=== PATIENT | male | born 1945 | race Caucasian/White ===

== ENCOUNTER 2016-10-29 10:48 | Emergency (ER) | payer MEDICARE, OTHER ==
[2016-10-29] MEDS ORDERED: Sodium Chloride 0.9% 10 ML Syringe FLUSH PRN (11:11)
--- NOTE | 2016-10-29 11:15 | EDM.PDOC ---
ED HPI GENERAL MEDICAL PROBLEM - General Chief Complaint: Lower Extremity Injury/Pain Stated Complaint: FELL ON , HASN'T BEEN ABLE TO WALK Time Seen by Provider: 10/29/16 11:05 Source of Information: Reports: Patient, Family () History Limitations: Reports: No Limitations - History of Present Illness INITIAL COMMENTS - FREE TEXT/NARRATIVE: The patient is a 71-year-old male who presents to ED complaining of left groin and left hip pain. Patient has a history of stroke left-sided with chronic disability. He's unable to ambulate on his own accord. He utilizes a one handed walker. Patient states he was unplugging a toilet and while exiting the bathroom he lost his balance landing on his left side. Patient was not able to get up on his own accord and had to phone somebody for assistance. Since the fall on October 17, 2016 he has had increased difficulty with weightbearing and ambulation. The patient has not noticed any bruising or swelling. States his pain is constant moderate intensity with waxing and waning. Pain is increased with palpation and also weightbearing. 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 Denies any loss, head/neck/back pain,nausea/vomiting, shortness of breath, chest pain, abdominal pain, fever/chills, or dysuria. 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 Duration: Constant, Waxing/Waning Location: Reports: Other (left groin, left hip) Quality: Reports: Ache, Throbbing Severity: Moderate Improves with: Reports: Rest Worsens with: Reports: Movement (/palpation) Context: Reports: Trauma (fell the on the left side) Associated Symptoms: Reports: No Other Symptoms Treatments [employer]: Reports: Other (see below) (none stated) Left Groin Pain Score (Numeric/FACES): 3 - Related Data Allergies Allergy/AdvReac Type Severity Reaction Status Date / Time enoxaparin [From Lovenox] Allergy Cannot Verified 10/29/16 11:10 Remember heparin Allergy Cannot Verified 10/29/16 11:10 Remember Home Meds: Home Meds Carvedilol. 0.5 tab PO BID 10/29/16 [History] Cholecalciferol (Vitamin D3) [Vitamin D3] 1,000 units PO DAILY 10/29/16 [History ] Diltiazem. 1 tab PO Q2D 10/29/16 [History] Insulin Glarg,Human.Rec.Analog [LantUS Solostar] 55 units SUBCUT DAILY 10/29/16 [History] Novolog Sliding Scale. 0 units SQ ASDIRECTED 10/29/16 [History] RX: Docusate Sodium 100 mg PO DAILY 10/29/16 [History] RX: Finasteride 5 mg PO DAILY 10/29/16 [History] RX: Lisinopril 5 mg PO DAILY 10/29/16 [History] Sertraline [Zoloft] 100 mg PO DAILY 10/29/16 [History] Simvastatin. 0.5 tab PO DAILY 10/29/16 [History] Warfarin [Coumadin] 2.5 mg PO SUTUTHSA 10/29/16 [History] Warfarin [Coumadin] 5 mg PO MOWEFR 10/29/16 [History] Review of Systems - Review of Systems Review Of Systems: See Below Constitutional: Reports: No Symptoms Respiratory: Denies: Shortness of Breath, Cough, Sputum, Hemoptysis Cardiovascular: Denies: Chest Pain, Edema, Irregular Heart Rate, Lightheadedness , Palpitations, Syncope GI/Abdominal: Reports: Abdominal Pain (left groin). Denies: Bloody Stool, Constipation, Decreased Appetite, Diarrhea, Nausea, Vomiting Genitourinary: Reports: Incontinence. Denies: Dysuria, Hematuria, Painful Urination Musculoskeletal: Reports: Joint Pain (left hip). Denies: Neck Pain, Back Pain Skin: Denies: Bruising, Wound Neurological: Reports: Difficulty Walking (chronic worsened with recent fall). Denies: Numbness, Tingling Trauma Exam - Physical Exam Exam: See Below Exam Limited By: No Limitations General Appearance: Reports: Alert, WD/WN, No Apparent Distress Head: Reports: Atraumatic, Normocephalic Eyes: Bilateral Eye: EOMI Ears: Reports: Normal External Exam Nose: Reports: Normal Inspection Throat/Mouth: Reports: Normal Inspection, Normal Oropharynx, Normal Voice, No Airway Compromise Neck: Reports: Non-Tender, Full Range of Motion, Normal Alignment, Normal Inspection Respiratory Exam: Reports: No Respiratory Distress, Lungs Clear, Normal Breath Sounds, No Accessory Muscle Use, Chest Non-Tender Cardiovascular: Reports: Normal Peripheral Pulses, Regular Rate, Rhythm GI/Abdominal: Reports: Normal Bowel Sounds, Soft, Non-Tender, No Organomegaly, No Distention (Male) Exam: Normal Inspection, Circumcised, Other (left inguinal. No intracardiac palpated with bearing down.). No: Scrotum Tenderness (L), Scrotum Tenderness (R), Testicular Tenderness (L), Testicular Tenderness (R) Back: Reports: Full Range of Motion, Normal Inspection, Non-Tender. Denies: CVA Tenderness (R), CVA Tenderness (L) Extremities: Pain with Movement (minimal), Unable to Bear Weight (secondary to pain left hip/groin), Other (left hip pain with palpation. No external rotation or shortening noted. No pain with palpation of the remaining structures the left leg.) Neurologic: Reports: No Motor/Sensory Deficits, Normal Mood/Affect, Oriented x 3 , Other (patient has left-sided deficits secondary to stroke which is chronic and unchanged recently.) Skin: Reports: Normal Color, Warm/Dry Course - Vital Signs Last Recorded V/S: Last Vital Signs Temp 98.7 F 10/29/16 11:05 Pulse 47 L 10/29/16 12:00 Resp 14 10/29/16 12:00 BP 145/81 H 10/29/16 12:00 Pulse Ox 98 10/29/16 12:00 - Orders/Labs/Meds Orders: Active Orders 24 hr Category Date Time Status EKG 12 Lead [EKG Documentation Completion] [RC] STAT Care 10/29/16 12:15 Active Peripheral IV Care [RC] . DIRECTED Care 10/29/16 11:12 Active Peripheral IV Insertion Adult [OM.PC] Stat Oth 10/29/16 11:11 Ordered Labs: Laboratory Tests 10/29/16 10/29/16 10/29/16 Range/Units 11:30 11:30 11:30 WBC 13.04 H (4.23-9.07) K/mm3 RBC 5.59 (4.63-6.08) M/mm3 Hgb 14.7 (13.7-17.5) gm/L Hct 43.7 (40.1-51.0) % MCV 78.2 L (79.0-92.2) fl MCH 26.3 (25.7-32.2) pg MCHC 33.6 (32.2-35.5) g/dl RDW Std Deviation 43.3 (35.1-43.9) fL Plt Count 244 (163-337) K/mm3 MPV 9.6 (9.4-12.3) fl Neut % (Auto) 76.2 H (34.0-67.9) % Lymph % (Auto) 13.7 L (21.8-53.1) % [place] % (Auto) 7.1 (5.3-12.2) % Eos % (Auto) 2.5 (0.8-7.0) Baso % (Auto) 0.3 (0.1-1.2) % Neut # (Auto) 9.93 H (1.78-5.38) K/mm3 Lymph # (Auto) 1.78 (1.32-3.57) K/mm3 [place] # (Auto) 0.93 H (0.30-0.82) K/mm3 Eos # (Auto) 0.33 (0.04-0.54) K/mm3 Baso # (Auto) 0.04 (0.01-0.08) K/mm3 PT 35.3 H (8.0-13.0) SECONDS INR 3.02 Sodium 146 H (136-145) mEq/L Potassium 4.0 (3.5-5.1) mEq/L Chloride 107 (98-107) mEq/L Carbon Dioxide 26 (21-32) mEq/L Anion Gap 17.0 H (5-15) BUN 18 (7-18) mg/dL Creatinine 1.3 (0.7-1.3) mg/dL Est Cr Clr Drug Dosing 49.43 mL/min Estimated GFR (MDRD) 55 (>60) mL/min BUN/Creatinine Ratio 13.8 L (14-18) Glucose 169 H (80-115) mg/dL Calcium 9.2 (8.5-10.1) mg/dL Total Bilirubin 0.4 (0.2-1.0) mg/dL AST 27 (15-37) U/L ALT 31 (16-63) U/L Alkaline Phosphatase 159 H (46-116) U/L Total Protein 7.6 (6.4-8.2) g/dl Albumin 2.9 L (3.4-5.0) g/dl Globulin 4.7 gm/dL Albumin/Globulin Ratio 0.6 L (1-2) Meds: Medications Discontinued Medications Generic Name Dose Route Start Last Admin Trade Name Jose PRN Reason Stop Dose Admin Diatrizoate Meglum/Diatrizoate Sod 90 ml 10/29/16 12:07 10/29/16 12:23 Gastrografin 37% PO 10/29/16 12:08 90 ml ONETIME ONE Administration Sodium Chloride 100 mls @ 60 mls/hr 10/29/16 12:15 10/29/16 12:24 Normal Saline IV 60 mls/hr ASDIRECTED CHARITO Administration Sodium Chloride 1,000 mls @ 125 mls/hr 10/29/16 13:15 Normal Saline IV ASDIRECTED CHARITO Iopamidol 100 ml 10/29/16 12:07 10/29/16 12:23 Isovue-370 (76%) IVPUSH 10/29/16 12:08 100 ml ONETIME ONE Administration Sodium Chloride 10 ml 10/29/16 11:11 10/29/16 12:53 Saline Flush FLUSH 10 ml ASDIRECTED PRN Administration Keep Vein Open Sodium Chloride 10 ml 10/29/16 12:07 10/29/16 12:23 Saline Flush FLUSH 10/29/16 12:08 10 ml ONETIME ONE Administration - Re-Assessments/Exams Free Text/Narrative Re-Assessment/Exam: I have ordered a peripheral IV for CT of abdomen and pelvis with oral and IV contrast. Will also obtain CBC, chem 14, and left hip x-ray. 10/29/16 12:20 Nursing staff noted patients HR has been bradycardic. With examination patients HR was 51. EKG sinus bradycardia, rate 51, VA interval 158, QTc 484, poor R wave progression. Per spouse, this is normal for patient. Patient has no concerning symptoms related to bradycardia. Labs reviewed:White blood cell count 13.04, neutrophils percent 76.7, neutrophil #9.93, platelets 244, sodium 146, potassium 4.0, I am 17, creatinine 1.3, glucose was 69, alk phosphatase is 159. PT/INR 3.02 which is mildly supratherapeutic therapeutic. Creatinine was 1.3 ordered normal saline with 125 ml infusing 250mls. Awaiting results of CT. CT abdomen/pelvis/hip impression:nonobstructing 9 mm stone within the right kidney. Calcification within the UVJ or next to the UVJ with a bladder measuring 5 mm. Difficult to exclude a very distal nostril calculus within the UVJ. Low density lesion within the liver having nonspecific hospital unit measurements. This is likely benign given that no other abnormalities seen within the liver. The area liver was not included on previous CT exam. Minimal low-density lesion within the right to be incidental. Other incidental findings. CT of the left hip impression: Mild degenerative changes. Nothing acute is appreciated on CT study of the left hip. The patient continues to be symptomatic , MRI could be then considered for further evaluation. 10/29/16 14:35 Shared results of labs and CT studies with patient and spouse. I have offered PT evaluation and treatment to which they have refused. Will discharge patient home with instructions as documented. Per nursing staff fluids were never administered since they were ordered under scheduled. Departure - Departure Time of Disposition: 14:37 Disposition: Home, Self-Care 01 Condition: good Clinical Impression: Left groin pain, Left hip pain - Discharge Information Instructions: Hip Pain Referrals: Latrell Coleman MD [Primary Care Provider] - Forms: ED Department Discharge Additional Instructions: As discussed CT of the abdomen/pelvis/hip did not identify clear etiology for pain you are currently experiencing. History and examination suggests muscle related due to recent fall. Thus symptomatic care is appropriate including: ice and heat in alternating fashion, aleve and tylenol. Followup with PCP in one week if symptoms are not improving. Return to the E.D. for any new or worsening symptoms. - My Orders Last 24 Hours: My Active Orders 10/29/16 11:11 Peripheral IV Insertion Adult [OM.PC] Stat 10/29/16 11:12 Peripheral IV Care [RC] . DIRECTED 10/29/16 12:15 EKG 12 Lead [EKG Documentation Completion] [] STAT - Assessment/Plan Last 24 Hours: My Active Orders 10/29/16 11:11 Peripheral IV Insertion Adult [OM.PC] Stat 10/29/16 11:12 Peripheral IV Care [RC] . DIRECTED 10/29/16 12:15 EKG 12 Lead [EKG Documentation Completion] [] STAT
[2016-10-29] MEDS ORDERED: HYDROmorphone 1 MG/ML Syringe IM ONE (11:44)
[2016-10-29] MEDS ORDERED: Ketorolac 30 MG/ML SDV IM ONE (11:44)
[2016-10-29] MEDS ORDERED: Iopamidol 755 Mg/ML 100 ML Bottle IVPUSH ONE (12:07)
[2016-10-29] MEDS ORDERED: Diatrizoate Meglumine/Diatrizoate Sodium 37% 120 ML Bottle PO ONE (12:07)
[2016-10-29] MEDS ORDERED: Sodium Chloride 0.9% 10 ML Syringe FLUSH ONE (12:07)
[2016-10-29] MEDS ORDERED: Sodium Chloride 0.9% 100 ML IV SCH (12:15)
[2016-10-29 13:07] VITALS: BP 145/81
[2016-10-29] MEDS ORDERED: Sodium Chloride 0.9% 1,000 ML IV SCH (13:15)
--- NOTE | 2016-10-29 13:38 | CT ---
Addendum: Voice recognition error describing bone window settings in the body of the original report is noted. Following is the corrected paragraph: Bone window settings were reviewed which shows scattered degenerative change throughout the spine. --- Addendum1 above dictated on [10/30/2016 09:10] by [Agnes Flood Hilton J.] --- --- Addendum1 above signed on [10/30/2016 09:11] by [Agnes Flood Hilton J.] --- --- Original report below dictated on [10/29/2016 13:23] by [Agnes Flood Hilton J.] --- --- Original report below signed on [10/29/2016 13:36] by [Agnes Flood Hilton J.] --- CT abdomen and pelvis Technique: Multiple axial sections were obtained from above the dome of the diaphragm inferiorly through the pubic symphysis. Intravenous and oral contrast has been given. Comparison: Previous noncontrast CT exam of 05/15/13 is available. Findings: Slight fibrosis is noted within both lung bases. Nonspecific small low-density lesion is noted within the right lobe of the liver measuring about 1.4 cm. Liver is otherwise unremarkable. Spleen appears within normal limits. Adrenal glands show no nodule. Pancreas is within normal limits. Gallbladder shows no calcified gallstones. Minimal low density area is noted within the cortex of the right kidney measuring 4 mm. This is too small to characterize by Hounsfield unit measurements but is likely due to a small cyst. Calcification compatible with nonobstructing stone is noted within the right kidney measuring 9 mm. No additional abnormality is seen within either the right or left kidneys. Aorta shows no aneurysmal dilatation. Mild atherosclerotic change noted within the aorta and iliac vessels. No retroperitoneal adenopathy is seen. No pelvic mass or adenopathy is seen. There is a calcification being seen within the bladder either adjacent to or within the UVJ measuring 5 mm. Difficult to exclude a nonobstructing distal right ureteral stone. No additional abnormality is seen within the ureters. No pelvic bone window settings were reviewed which shows scattered degenerative change throughout the lumbar spine. Impression: 1. Nonobstructing 9 mm stone within the right kidney. Calcification within the UVJ or next to the UVJ within the bladder measuring 5 mm. Difficult to exclude a very distal nonobstructing calculus within the UVJ. 2. Low-density lesion within the liver having nonspecific Hounsfield unit measurements. This is likely benign given that no other abnormality is seen within the liver. This area of the liver was not included on previous CT exam. 3. Minimal low density lesion within the right kidney felt to be incidental. 4. Other incidental findings. Diagnostic code #3 --- Addendum1 signed ---
--- NOTE | 2016-10-29 13:44 | CT ---
CT left hip Technique: Multiple axial sections were obtained through the left hip. Reconstructed coronal and sagittal images were reviewed. Findings: Mild degenerative change is noted within the left hip. No fracture is appreciated. Left superior and inferior pubic ramus appears to be intact. Impression: 1. Mild degenerative change. 2. Nothing acute is appreciated on CT study of the left hip. If patient continues to be symptomatic, MRI could then be considered to further evaluate. Diagnostic code #2 MTDD
== END 2016-10-29 15:00 | disposition home or self-care (01) ==
LOC: JD.ED 10:48
DX: R10.32 Left lower quadrant pain (principal); M25.552 Pain in left hip; Z88.8 Allergy status to other drugs, medicaments and biological substances; Z79.4 Long term (current) use of insulin; Z79.899 Other long term (current) drug therapy; Z79.01 Long term (current) use of anticoagulants
CPT/HCPCS: 36415; 73700; 74177; 80053; 85025; 85610; 93005; 99284; J7030; J7050; Q9963; Q9967

== ENCOUNTER 2017-10-14 12:53 | Observation (INO) | payer MEDICARE, OTHER ==
--- NOTE | 2017-10-14 14:32 | CR ---
Left knee: 4 views of the left knee were obtained. Comparison: No previous study. Joint effusion is seen. Medial and lateral joint compartments are maintained in height. Bony structures are osteopenic. Vascular calcification is noted. Nothing acute is seen. Impression: 1. Joint effusion and other incidental findings. 2. No acute bony abnormality is definitely seen although if patient has sufficient symptoms, knee CT could be considered to further evaluate. Diagnostic code #3
[2017-10-14] MEDS ORDERED: Sodium Chloride 0.9% 10 ML Syringe FLUSH PRN (15:48)
--- NOTE | 2017-10-14 16:15 | EDM.PDOC ---
ED HPI GENERAL MEDICAL PROBLEM - General Chief Complaint: Lower Extremity Injury/Pain Stated Complaint: [facility] Time Seen by Provider: 10/14/17 13:16 Source of Information: Reports: Patient, EMS, Family History Limitations: Reports: No Limitations - History of Present Illness INITIAL COMMENTS - FREE TEXT/NARRATIVE: The patient presents by [facility] for left knee injury and pain. This happened yesterday. He was coming down some stairs and he fell and landed on his left knee. He has a history of a CVA with left sided weakness. He has moderate pain and edema now. He did not hit his head or hurt his neck. He has no chest pain, shortness of breath or abdominal pain. He was recently discharged from [facility] for a bad UTI. He has been a little weak since the infection. He can walk with the help of a walker. He cannot walk after the fall. His called the patient's doctor Dr Robbins. He thought the patient may need to be admitted and have some PT. Onset: Sudden Duration: Day(s): (Yesterday) Location: Reports: Lower Extremity, Left (Knee) Quality: Reports: Sharp Severity: Moderate Improves with: Reports: Immobilization Worsens with: Reports: Movement Context: Reports: Trauma (Fall) Associated Symptoms: Reports: No Other Symptoms Left Knee Pain Score (Numeric/FACES): 5 - Related Data Allergies Allergy/AdvReac Type Severity Reaction Status Date / Time enoxaparin [From Lovenox] Allergy Anaphylactic Verified 10/14/17 13:03 Shock heparin Allergy Anaphylactic Verified 10/14/17 13:03 Shock Home Meds: Home Meds Acetaminophen [Tylenol Arthritis] 650 mg PO Q4H PRN 10/14/17 [History] Alendronate Sodium [Fosamax] 70 mg PO DAILY 10/14/17 [History] Allopurinol [Zyloprim] 100 mg PO DAILY 10/14/17 [History] Bisacodyl [Dulcolax] 1 supp RECTAL DAILY PRN 10/14/17 [History] Carvedilol [Coreg] 3.125 mg PO BID 10/14/17 [History] Diltiazem HCl [Cardizem Cd] 240 mg PO Q48H 10/14/17 [History] Docusate Sodium [Colace] 100 mg PO DAILY 10/14/17 [History] Ferrous Sulfate 325 mg PO BID 10/14/17 [History] Finasteride [Proscar] 5 mg PO DAILY 10/14/17 [History] Insulin Aspart [NovoLOG] 4 units SUBCUT BID 10/14/17 [History] Insulin Glarg,Human.Rec.Analog [Lantus] 50 units SUBCUT DAILY 10/14/17 [History] Lisinopril 5 mg PO DAILY 10/14/17 [History] Sertraline [Zoloft] 100 mg PO BEDTIME 10/14/17 [History] Tiotropium [Spiriva HandiHaler] 1 inh PO DAILY 10/14/17 [History] Warfarin [Coumadin] 2.5 mg PO DAILY 10/14/17 [History] atorvaSTATin [Lipitor] 40 mg PO BEDTIME 10/14/17 [History] Past Medical History Genitourinary History: Reports: UTI, Recurrent Neurological History: Reports: CVA - Infectious Disease History Infectious Disease History: Reports: MRSA Social & Family History - Caffeine Use Caffeine Use: Reports: None - Recreational Drug Use Recreational Drug Use: No Review of Systems - Review of Systems Review Of Systems: See Below Constitutional: Reports: No Symptoms Eyes: Reports: No Symptoms Ears: Reports: No Symptoms Nose: Reports: No Symptoms Mouth/Throat: Reports: No Symptoms Respiratory: Reports: No Symptoms Cardiovascular: Reports: No Symptoms GI/Abdominal: Reports: No Symptoms Genitourinary: Reports: No Symptoms Musculoskeletal: Reports: Other (Left knee pain and edema) ED EXAM, GENERAL - Physical Exam Exam: See Below Exam Limited By: No Limitations General Appearance: Alert, No Apparent Distress Ears: Normal External Exam Nose: Normal Inspection Head: Atraumatic, Normocephalic Neck: Normal Inspection Respiratory/Chest: No Respiratory Distress, Lungs Clear, Normal Breath Sounds Cardiovascular: Regular Rate, Rhythm, No Edema, No Murmur GI/Abdominal: Soft, Non-Tender, No Organomegaly, No Mass Extremities: Other (Moderate edema to the left knee with moderate pain upon palpation. Good sensation and pulses distally.) Neurological: Alert, Oriented, Other (Weakness to the left arm and leg) Course - Vital Signs Last Recorded V/S: Last Vital Signs Temp 97.6 F 10/14/17 12:58 Pulse 54 L 10/14/17 12:58 Resp 18 10/14/17 12:58 BP 137/114 H 10/14/17 12:58 Pulse Ox 96 10/14/17 12:58 - Orders/Labs/Meds Orders: Active Orders 24 hr Category Date Time Status Cardiac Monitoring [RC] . DIRECTED Care 10/14/17 15:48 Active Peripheral IV Care [RC] . DIRECTED Care 10/14/17 15:49 Active Knee wo Cont Lt [CT] Stat Exams 10/14/17 15:48 Taken CULTURE URINE [RM] Stat Lab 10/14/17 16:15 Received UA W/MICROSCOPIC [URIN] Stat Lab 10/14/17 16:15 Ordered Sodium Chloride 0.9% [Saline Flush] Med 10/14/17 15:48 Active 10 ml FLUSH ASDIRECTED PRN cefTRIAXone [Rocephin] 2 gm Med 10/14/17 17:30 Active Sodium Chloride 0.9% [Normal Saline] 100 ml IV ONETIME Peripheral IV Insertion Adult [OM.PC] Stat Oth 10/14/17 15:48 Ordered Medication Orders Ceftriaxone Sodium 2 gm/ (Sodium Chloride) 100 mls @ 100 mls/hr IV ONETIME ONE Stop: 10/14/17 18:29 Sodium Chloride (Saline Flush) 10 ml FLUSH ASDIRECTED PRN PRN Reason: Keep Vein Open Last Admin: 10/14/17 16:27 Dose: 10 ml Labs: Laboratory Tests 10/14/17 10/14/17 10/14/17 Range/Units 16:15 16:15 16:15 WBC 11.37 H (4.23-9.07) K/mm3 RBC 4.91 (4.63-6.08) M/mm3 Hgb 13.0 L (13.7-17.5) gm/L Hct 39.5 L (40.1-51.0) % MCV 80.4 (79.0-92.2) fl MCH 26.5 (25.7-32.2) pg MCHC 32.9 (32.2-35.5) g/dl RDW Std Deviation 45.4 H (35.1-43.9) fL Plt Count 171 (163-337) K/mm3 MPV 10.7 (9.4-12.3) fl Neut % (Auto) 72.7 H (34.0-67.9) % Lymph % (Auto) 14.7 L (21.8-53.1) % [place] % (Auto) 9.1 (5.3-12.2) % Eos % (Auto) 2.9 (0.8-7.0) Baso % (Auto) 0.3 (0.1-1.2) % Neut # (Auto) 8.28 H (1.78-5.38) K/mm3 Lymph # (Auto) 1.67 (1.32-3.57) K/mm3 [place] # (Auto) 1.03 H (0.30-0.82) K/mm3 Eos # (Auto) 0.33 (0.04-0.54) K/mm3 Baso # (Auto) 0.03 (0.01-0.08) K/mm3 PT (9.5-12.1) SECONDS INR Sodium 142 (136-145) mEq/L Potassium 3.9 (3.5-5.1) mEq/L Chloride 106 (98-107) mEq/L Carbon Dioxide 27 (21-32) mEq/L Anion Gap 12.9 (5-15) BUN 14 (7-18) mg/dL Creatinine 1.0 (0.7-1.3) mg/dL Est Cr Clr Drug Dosing 63.35 mL/min Estimated GFR (MDRD) > 60 (>60) mL/min BUN/Creatinine Ratio 14.0 (14-18) Glucose 115 (83-115) mg/dL Calcium 8.8 (8.5-10.1) mg/dL Total Bilirubin 0.8 (0.2-1.0) mg/dL AST 23 (15-37) U/L ALT 26 (16-63) U/L Alkaline Phosphatase 111 (46-116) U/L Total Protein 6.7 (6.4-8.2) g/dl Albumin 2.7 L (3.4-5.0) g/dl Globulin 4.0 gm/dL Albumin/Globulin Ratio 0.7 L (1-2) Urine Color Yellow (Yellow) Urine Appearance Slt cloudy H (Clear) Urine pH 7.0 (5.0-8.0) Ur Specific [place] 1.020 (1.005-1.030) Urine Protein 1+ H (Negative) Urine Glucose (UA) Negative (Negative) Urine Ketones Negative (Negative) Urine Occult Blood 1+ H (Negative) Urine Nitrite Negative (Negative) Urine Bilirubin Negative (Negative) Urine Urobilinogen 0.2 (0.2-1.0) Ur Leukocyte Esterase 1+ H (Negative) Urine RBC 5-10 H (0-5) /hpf Urine WBC 10-20 H (0-5) /hpf Ur Epithelial Cells 0-5 (0-5) /hpf Urine Bacteria Few (FEW) /hpf Urine Mucus Moderate H (FEW) /hpf 10/14/17 Range/Units 16:15 WBC (4.23-9.07) K/mm3 RBC (4.63-6.08) M/mm3 Hgb (13.7-17.5) gm/L Hct (40.1-51.0) % MCV (79.0-92.2) fl MCH (25.7-32.2) pg MCHC (32.2-35.5) g/dl RDW Std Deviation (35.1-43.9) fL Plt Count (163-337) K/mm3 MPV (9.4-12.3) fl Neut % (Auto) (34.0-67.9) % Lymph % (Auto) (21.8-53.1) % [place] % (Auto) (5.3-12.2) % Eos % (Auto) (0.8-7.0) Baso % (Auto) (0.1-1.2) % Neut # (Auto) (1.78-5.38) K/mm3 Lymph # (Auto) (1.32-3.57) K/mm3 [place] # (Auto) (0.30-0.82) K/mm3 Eos # (Auto) (0.04-0.54) K/mm3 Baso # (Auto) (0.01-0.08) K/mm3 PT 31.4 H (9.5-12.1) SECONDS INR 2.94 Sodium (136-145) mEq/L Potassium (3.5-5.1) mEq/L Chloride (98-107) mEq/L Carbon Dioxide (21-32) mEq/L Anion Gap (5-15) BUN (7-18) mg/dL Creatinine (0.7-1.3) mg/dL Est Cr Clr Drug Dosing mL/min Estimated GFR (MDRD) (>60) mL/min BUN/Creatinine Ratio (14-18) Glucose (83-115) mg/dL Calcium (8.5-10.1) mg/dL Total Bilirubin (0.2-1.0) mg/dL AST (15-37) U/L ALT (16-63) U/L Alkaline Phosphatase (46-116) U/L Total Protein (6.4-8.2) g/dl Albumin (3.4-5.0) g/dl Globulin gm/dL Albumin/Globulin Ratio (1-2) Urine Color (Yellow) Urine Appearance (Clear) Urine pH (5.0-8.0) Ur Specific [place] (1.005-1.030) Urine Protein (Negative) Urine Glucose (UA) (Negative) Urine Ketones (Negative) Urine Occult Blood (Negative) Urine Nitrite (Negative) Urine Bilirubin (Negative) Urine Urobilinogen (0.2-1.0) Ur Leukocyte Esterase (Negative) Urine RBC (0-5) /hpf Urine WBC (0-5) /hpf Ur Epithelial Cells (0-5) /hpf Urine Bacteria (FEW) /hpf Urine Mucus (FEW) /hpf Meds: Medications Generic Name Dose Route Start Last Admin Trade Name Freq PRN Reason Stop Dose Admin Ceftriaxone Sodium 2 gm/ 100 mls @ 100 mls/hr 10/14/17 17:30 Sodium Chloride IV 10/14/17 18:29 ONETIME ONE Sodium Chloride 10 ml 10/14/17 15:48 10/14/17 16:27 Saline Flush FLUSH 10 ml ASDIRECTED PRN Administration Keep Vein Open - Re-Assessments/Exams Free Text/Narrative Re-Assessment/Exam: 10/14/17 16:17 I ordered an x-ray of his knee. Dr Flood read it as joint effusion and other incidental findings. No acute bony abnormality is definitely seen although if patient has sufficient symptoms, knee CT could be considered to further evaluate. I went to the patient to let him know he did not have a fracture and that we would be discharging him. His was in the room and she had major concerns. She says he cannot walk like this. She did talk to Dr Robbins and he wanted the patient admitted and to have PT. I called Dr Robbins and we talked and we both agreed the patient should be admitted for physical therapy. I will get a CT of his knee and check some labs. 10/14/17 16:[address] of his knee shows joint effusion and diffuse subcutaneous edema. Osteoporosis. No acute bony abnormality is appreciated. 10/14/17 17:50 His WBC was elevated at 11.37. His INR was 2.94. His CMP looks good. His UA shows a UTI. I have ordered a culture and rocephin. I feel he needs to be admitted. I called Dr Zee and he agreed to the admission. Departure - Departure Time of Disposition: 17:55 Disposition: Home, Self-Care 01 Condition: Good Clinical Impression: Effusion, left knee UTI (urinary tract infection) Qualifiers: Urinary tract infection type: site unspecified Hematuria presence: without hematuria Qualified Code(s): N39.0 - Urinary tract infection, site not specified Fall Qualifiers: Encounter type: initial encounter Qualified Code(s): W19.XXXA - Unspecified fall, initial encounter Contusion of left knee Qualifiers: Encounter type: initial encounter Qualified Code(s): S80.02XA - Contusion of left knee, initial encounter - Discharge Information Referrals: Latrell Rbobins MD [Primary Care Provider] - Forms: ED Department Discharge - My Orders Last 24 Hours: My Active Orders 10/14/17 15:48 Cardiac Monitoring [RC] . DIRECTED Knee wo Cont Lt [CT] Stat Sodium Chloride 0.9% [Saline Flush] 10 ml FLUSH ASDIRECTED PRN Peripheral IV Insertion Adult [OM.PC] Stat 10/14/17 15:49 Peripheral IV Care [RC] . DIRECTED 10/14/17 16:15 CULTURE URINE [RM] Stat UA W/MICROSCOPIC [URIN] Stat 10/14/17 17:30 cefTRIAXone [Rocephin] 2 gm Sodium Chloride 0.9% [Normal Saline] 100 ml IV ONETIME - Assessment/Plan Last 24 Hours: My Active Orders 10/14/17 15:48 Cardiac Monitoring [RC] . DIRECTED Knee wo Cont Lt [CT] Stat Sodium Chloride 0.9% [Saline Flush] 10 ml FLUSH ASDIRECTED PRN Peripheral IV Insertion Adult [OM.PC] Stat 10/14/17 15:49 Peripheral IV Care [RC] . DIRECTED 10/14/17 16:15 CULTURE URINE [RM] Stat UA W/MICROSCOPIC [URIN] Stat 10/14/17 17:30 cefTRIAXone [Rocephin] 2 gm Sodium Chloride 0.9% [Normal Saline] 100 ml IV ONETIME
[2017-10-14] MEDS ORDERED: cefTRIAXone 2 GM in Sodium Chloride 0.9% 100 ML IV ONE (17:30)
[2017-10-14] MEDS ORDERED: Metoprolol Tartrate 5 MG/5 ML SDV IVPUSH PRN (20:37)
[2017-10-14] MEDS ORDERED: LORazepam 2 MG/ML SDV IVPUSH PRN (20:37)
[2017-10-14] MEDS ORDERED: hydrALAZINE 20 MG/ML SDV IVPUSH PRN (20:37)
[2017-10-14] MEDS ORDERED: Magnesium Hydroxide 400 MG/5 ML Susp 30 ML Cup PO PRN (20:38)
[2017-10-14] MEDS ORDERED: Bisacodyl 5 MG Tab PO PRN (20:38)
[2017-10-14] MEDS ORDERED: Acetaminophen/HYDROcodone 325-5 MG Tab PO PRN (20:38)
[2017-10-14] MEDS ORDERED: Promethazine 12.5 MG in Sodium Chloride 0.9% 50 ML IV PRN (20:38)
[2017-10-14] MEDS ORDERED: Albuterol/Ipratropium 3.0-0.5 MG/3 ML Neb Soln NEB PRN (20:38)
[2017-10-14] MEDS ORDERED: Ibuprofen 400 MG Tab PO PRN (20:38)
[2017-10-14] MEDS ORDERED: LORazepam 2 MG/ML SDV IV PRN (20:38)
[2017-10-14] MEDS ORDERED: Acetaminophen 325 MG Tab PO PRN (20:38)
[2017-10-14] MEDS ORDERED: Polyethylene Glycol 3350 Powder 17 GM Packet PO PRN (20:38)
[2017-10-14] MEDS ORDERED: Ondansetron 4 MG/2 ML SDV IV PRN (20:38)
[2017-10-14] MEDS ORDERED: Bisacodyl 10 MG Supp RECTAL PRN (20:38)
[2017-10-14] MEDS ORDERED: HYDROmorphone 0.5 MG/0.5 ML SYRINGE IVPUSH PRN (20:38)
[2017-10-14] MEDS ORDERED: Temazepam 7.5 MG Cap PO PRN (20:38)
[2017-10-14] MEDS ORDERED: Sodium Chloride 0.9% 1,000 ML IV SCH (20:45)
[2017-10-14] MEDS ORDERED: 50% Dextrose in Water 50 ML Syringe IVPUSH PRN (20:46)
[2017-10-14] MEDS ORDERED: INSULIN ASPART 4 UNIT SUBCUT SCH (21:00)
[2017-10-14] MEDS ORDERED: SERTRALINE 100 MG PO SCH (21:00)
--- NOTE | 2017-10-14 21:09 | PCM.HP ---
H&P History of Present Illness - General Date of Service: 10/14/17 Admit Problem/Dx: Admission Diagnosis/Problem Admission Diagnosis/Problem UTI, Urinary tract infectious disease Source of Information: Patient, Provider, RN Notes Reviewed History Limitations: Reports: Physical Impairment - History of Present Illness Initial Comments - Free Text/Narative: This is 72 yo elderly white male with past medical hx/o Cardiac Dysrhythmia/ Atrial Arrhythmia, on Warfarin, HLD, DM2, BPH, MIKIE, Pulmonary Insufficiency/RAD, Osteoporosis, Gout, Hx/o MRSA, Depression, H/o CVA with Residual Right Sided Weakness and Recurrent UTI who comes in for evaluation of left knee pain after a recent fall coming down from stairs that took place yesterday at home. He carries a history of CVA with left-sided weakness. His chief of complaint is associated with moderate pain and edema. He denies hitting his head and no loss of consciousness. He further denies any bladder or bowel incontinence. Patient carries a history of recurrent UTI. He was just discharged from [facility] for a bad case of UTI. Patient is able to walk with a walker. However, according to him after he took a tumble, he had difficulty ambulating and so he presented to emergency department for further evaluation. His initial workup in ED shows a CBC remarkable for WBC of 11.37, hemoglobin of 13, hematocrit of 39.5, RDW of 45.4, neutrophils of 72.7%, and lymphocytes of 14.7%. His coagulation study are PT of 31.4% and INR of 2.94. His chemistry is remarkable for CRP of 4 and albumin of 2.7. His UA is significantly impressive for urinary tract infection. X-ray and CT scan of his knee report reads joint effusion, diffuse subcutaneous edema, osteoporosis, no acute bony abnormalities appreciated. She is being admitted for recurrent UTI and left knee contusion. He is CPR only. Left Knee Pain Score (Numeric/FACES): 0 - Related Data Allergies/Adverse Reactions: Allergies Allergy/AdvReac Type Severity Reaction Status Date / Time enoxaparin [From Lovenox] Allergy Anaphylactic Verified 10/14/17 13:03 Shock heparin Allergy Anaphylactic Verified 10/14/17 13:03 Shock Home Medications: Home Meds Acetaminophen [Tylenol Arthritis] 650 mg PO Q4H PRN 10/14/17 [History] Alendronate Sodium [Fosamax] 70 mg PO DAILY 10/14/17 [History] Allopurinol [Zyloprim] 100 mg PO DAILY 10/14/17 [History] Bisacodyl [Dulcolax] 1 supp RECTAL DAILY PRN 10/14/17 [History] Carvedilol [Coreg] 3.125 mg PO BID 10/14/17 [History] Diltiazem HCl [Cardizem Cd] 240 mg PO Q48H 10/14/17 [History] Docusate Sodium [Colace] 100 mg PO DAILY 10/14/17 [History] Ferrous Sulfate 325 mg PO BID 10/14/17 [History] Finasteride [Proscar] 5 mg PO DAILY 10/14/17 [History] Insulin Aspart [NovoLOG] 4 units SUBCUT BID 10/14/17 [History] Insulin Glarg,Human.Rec.Analog [Lantus] 50 units SUBCUT DAILY 10/14/17 [History] Lisinopril 5 mg PO DAILY 10/14/17 [History] Sertraline [Zoloft] 100 mg PO BEDTIME 10/14/17 [History] Tiotropium [Spiriva HandiHaler] 1 inh PO DAILY 10/14/17 [History] Warfarin [Coumadin] 2.5 mg PO DAILY 10/14/17 [History] atorvaSTATin [Lipitor] 40 mg PO BEDTIME 10/14/17 [History] Past Medical History HEENT History: Reports: Cataract, Impaired Vision Cardiovascular History: Reports: Afib, Heart Failure, Heart Valve Replacement, Hypertension, [place], Stents Respiratory History: Reports: COPD, Sleep Apnea Gastrointestinal History: Reports: GERD Genitourinary History: Reports: Renal Calculus, UTI, Recurrent Musculoskeletal History: Reports: Gout, Osteoarthritis, Osteoporosis Neurological History: Reports: CVA Endocrine/Metabolic History: Reports: Diabetes, Type II - Infectious Disease History Infectious Disease History: Reports: MRSA - Past Surgical History HEENT Surgical History: Reports: Cataract Surgery Cardiovascular Surgical History: Reports: Valve Replacement, Other (See Below) Other Cardiovascular Surgeries/Procedures: Mitral valve replacement; Tricuspid valve replaced Social & Family History - Tobacco Use Smoking Status *Q: Former Smoker Years of Tobacco use: 24 Used Tobacco, but Quit: Yes Month/Year Tobacco Last Used: Second Hand Smoke Exposure: No - Caffeine Use Caffeine Use: Reports: Soda - Recreational Drug Use Recreational Drug Use: No H&P Review of Systems - Review of Systems: Review Of Systems: See Below General: Reports: Weakness. Denies: Fever, Chills, Fatigue HEENT: Reports: No Symptoms Pulmonary: Denies: Shortness of Breath, Wheezing, Pleuritic Chest Pain Cardiovascular: Reports: Edema (knee). Denies: Chest Pain, Palpitations, Dyspnea on Exertion, Lightheadedness Gastrointestinal: Denies: Abdominal Pain, Constipation, Diarrhea, Decreased Appetite, Nausea, Vomiting Genitourinary: Reports: Retention Musculoskeletal: Reports: Joint Pain Skin: Reports: Erythema (left knee), Change in Color (left knee), Lesions (left knee). Denies: Cyanosis, Diaphoresis, Rash, Lumps, Urticaria Psychiatric: Denies: Depression, Agitation, Hallucinations, Suicidal Ideation Neurological: Reports: Pre-Existing Deficit, Trouble Speaking, Difficulty Walking, Weakness, Gait Disturbance. Denies: Confusion Hematologic/Lymphatic: Reports: Anemia Immunologic: Reports: No Symptoms Exam - Exam Exam: See Below - Vital Signs Vital Signs: Last Vital Signs Temp 37.1 C 10/14/17 18:46 Pulse 51 L 10/14/17 18:46 Resp 16 10/14/17 18:46 BP 172/73 H 10/14/17 18:46 Pulse Ox 98 10/14/17 18:46 Weight: 92.624 kg - Exam General: Alert, Cooperative, Mild Distress HEENT: Conjunctiva Clear, EOMI, Hearing Intact, Mucosa Moist & [place], Nares Patent, Normal Nasal Septum, Posterior Pharynx Clear, Pupils Equal, Pupils Reactive Neck: Supple, Trachea Midline, +2 Carotid Pulse wo Bruit, Full Range of Motion Lungs: Clear to Auscultation, Normal Respiratory Effort Cardiovascular: Regular Rate, Regular Rhythm GI/Abdominal Exam: Normal Bowel Sounds, Soft, Non-Tender, No Organomegaly, No Distention, No Abnormal Bruit (Male) Exam: Deferred, Other (wears under pad; smell foul urine) Rectal (Males) Exam: Deferred Back Exam: Normal Inspection, Decreased Range of Motion Extremities: Normal Inspection (right knee), Normal Range of Motion (right knee) , Non-Tender (right knee), No Pedal Edema (right knee), Normal Capillary Refill (right knee), Joint Swelling (left knee), Limited Range of Motion (left lower extremity), Increased Warmth (left knee), Redness (left knee) Skin: Warm, Dry, Intact Skin Alteration Location (Drawings Not To Scale): 1 - erythematous, edematous and mildly tender on palpation. ROM is limited Neurological: Normal Tone (right side). No: Reflexes Equal Bilateral, Strength Equal Bilateral, Normal Speech, Sensation Intact Neuro Extensive - Mental Status: Oriented x3, Normal Cognition, Memory Intact Neuro Extensive - Motor, Sensory, Reflexes: Abnormal Gait, Abnormal Reflexes ( on the left), Dysarthria, Hemeplagia (L), Pronator Drift (L), Abnormal Motor ( left), Motor/Sensory Deficits (left side ) Psychiatric: Alert, Normal Affect, Normal Mood - Patient Data Lab Results Last 24 hrs: Laboratory Results - last 24 hr 10/14/17 10/14/17 10/14/17 Range/Units 16:15 16:15 16:15 WBC 11.37 H (4.23-9.07) K/mm3 RBC 4.91 (4.63-6.08) M/mm3 Hgb 13.0 L (13.7-17.5) gm/L Hct 39.5 L (40.1-51.0) % MCV 80.4 (79.0-92.2) fl MCH 26.5 (25.7-32.2) pg MCHC 32.9 (32.2-35.5) g/dl RDW Std Deviation 45.4 H (35.1-43.9) fL Plt Count 171 (163-337) K/mm3 MPV 10.7 (9.4-12.3) fl Neut % (Auto) 72.7 H (34.0-67.9) % Lymph % (Auto) 14.7 L (21.8-53.1) % Glenn % (Auto) 9.1 (5.3-12.2) % Eos % (Auto) 2.9 (0.8-7.0) Baso % (Auto) 0.3 (0.1-1.2) % Neut # (Auto) 8.28 H (1.78-5.38) K/mm3 Lymph # (Auto) 1.67 (1.32-3.57) K/mm3 Glenn # (Auto) 1.03 H (0.30-0.82) K/mm3 Eos # (Auto) 0.33 (0.04-0.54) K/mm3 Baso # (Auto) 0.03 (0.01-0.08) K/mm3 PT (9.5-12.1) SECONDS INR Sodium 142 (136-145) mEq/L Potassium 3.9 (3.5-5.1) mEq/L Chloride 106 (98-107) mEq/L Carbon Dioxide 27 (21-32) mEq/L Anion Gap 12.9 (5-15) BUN 14 (7-18) mg/dL Creatinine 1.0 (0.7-1.3) mg/dL Est Cr Clr Drug Dosing 63.35 mL/min Estimated GFR (MDRD) > 60 (>60) mL/min BUN/Creatinine Ratio 14.0 (14-18) Glucose 115 (83-115) mg/dL Calcium 8.8 (8.5-10.1) mg/dL Total Bilirubin 0.8 (0.2-1.0) mg/dL AST 23 (15-37) U/L ALT 26 (16-63) U/L Alkaline Phosphatase 111 (46-116) U/L Total Protein 6.7 (6.4-8.2) g/dl Albumin 2.7 L (3.4-5.0) g/dl Globulin 4.0 gm/dL Albumin/Globulin Ratio 0.7 L (1-2) Urine Color Yellow (Yellow) Urine Appearance Slt cloudy H (Clear) Urine pH 7.0 (5.0-8.0) Ur Specific [place] 1.020 (1.005-1.030) Urine Protein 1+ H (Negative) Urine Glucose (UA) Negative (Negative) Urine Ketones Negative (Negative) Urine Occult Blood 1+ H (Negative) Urine Nitrite Negative (Negative) Urine Bilirubin Negative (Negative) Urine Urobilinogen 0.2 (0.2-1.0) Ur Leukocyte Esterase 1+ H (Negative) Urine RBC 5-10 H (0-5) /hpf Urine WBC 10-20 H (0-5) /hpf Ur Epithelial Cells 0-5 (0-5) /hpf Urine Bacteria Few (FEW) /hpf Urine Mucus Moderate H (FEW) /hpf 10/14/17 Range/Units 16:15 WBC (4.23-9.07) K/mm3 RBC (4.63-6.08) M/mm3 Hgb (13.7-17.5) gm/L Hct (40.1-51.0) % MCV (79.0-92.2) fl MCH (25.7-32.2) pg MCHC (32.2-35.5) g/dl RDW Std Deviation (35.1-43.9) fL Plt Count (163-337) K/mm3 MPV (9.4-12.3) fl Neut % (Auto) (34.0-67.9) % Lymph % (Auto) (21.8-53.1) % Glenn % (Auto) (5.3-12.2) % Eos % (Auto) (0.8-7.0) Baso % (Auto) (0.1-1.2) % Neut # (Auto) (1.78-5.38) K/mm3 Lymph # (Auto) (1.32-3.57) K/mm3 Glenn # (Auto) (0.30-0.82) K/mm3 Eos # (Auto) (0.04-0.54) K/mm3 Baso # (Auto) (0.01-0.08) K/mm3 PT 31.4 H (9.5-12.1) SECONDS INR 2.94 Sodium (136-145) mEq/L Potassium (3.5-5.1) mEq/L Chloride (98-107) mEq/L Carbon Dioxide (21-32) mEq/L Anion Gap (5-15) BUN (7-18) mg/dL Creatinine (0.7-1.3) mg/dL Est Cr Clr Drug Dosing mL/min Estimated GFR (MDRD) (>60) mL/min BUN/Creatinine Ratio (14-18) Glucose (83-115) mg/dL Calcium (8.5-10.1) mg/dL Total Bilirubin (0.2-1.0) mg/dL AST (15-37) U/L ALT (16-63) U/L Alkaline Phosphatase (46-116) U/L Total Protein (6.4-8.2) g/dl Albumin (3.4-5.0) g/dl Globulin gm/dL Albumin/Globulin Ratio (1-2) Urine Color (Yellow) Urine Appearance (Clear) Urine pH (5.0-8.0) Ur Specific [place] (1.005-1.030) Urine Protein (Negative) Urine Glucose (UA) (Negative) Urine Ketones (Negative) Urine Occult Blood (Negative) Urine Nitrite (Negative) Urine Bilirubin (Negative) Urine Urobilinogen (0.2-1.0) Ur Leukocyte Esterase (Negative) Urine RBC (0-5) /hpf Urine WBC (0-5) /hpf Ur Epithelial Cells (0-5) /hpf Urine Bacteria (FEW) /hpf Urine Mucus (FEW) /hpf Result Diagrams: 10/15/17 06:06 10/15/17 06:06 Problem List Initiated/Reviewed/Updated: Yes Orders Last 24hrs: Active Orders 24 hr Category Date Time Status Patient Status [ADT] Routine ADT 10/14/17 18:17 Active Blood Glucose Check, Bedside [RC] QIDACANDBED Care 10/14/17 20:46 Active Cardiac Monitoring [RC] . DIRECTED Care 10/14/17 15:48 Active Height and Weight [RC] DAILY Care 10/14/17 20:38 Active Intake and Output [RC] QSHIFT Care 10/14/17 20:39 Active Oxygen Therapy [RC] PRN Care 10/14/17 20:39 Active RT Aerosol Therapy [RC] ASDIRECTED Care 10/14/17 20:42 Active Telemetry Monitoring [Cardiac Monitoring] [RC] . Care 10/14/17 20:47 Active DIRECTED Up With Assistance [RC] ASDIRECTED Care 10/14/17 20:38 Active Up ad [place] [RC] ASDIRECTED Care 10/14/17 20:38 Active VTE/DVT Education [RC] PER UNIT ROUTINE Care 10/14/17 20:39 Active Vital Signs [RC] Q4H Care 10/14/17 20:39 Active Consult to Case Management [CONS] Routine Cons 10/14/17 20:42 Active Consult to Budget Director [CONS] Routine Cons 10/14/17 20:42 Active Consult to Spiritual Care [CONS] Routine Cons 10/14/17 20:42 Active OT Evaluation and Treatment [CONS] Routine Cons 10/14/17 20:42 Active PT Evaluation and Treatment [CONS] Routine Cons 10/14/17 20:42 Active Consistent Carbohydrate Diet [DIET] Diet 10/14/17 Dinner Active Heart Healthy Diet [DIET] Diet 10/14/17 Dinner Active Knee wo Cont Lt [CT] Stat Exams 10/14/17 15:48 Taken A1C [GLYCOSYLATED HEMOGLOBIN,HGBA1C] [CHEM] AM Lab 10/15/17 05:11 Ordered BASIC METABOLIC PANEL,BMP [CHEM] AM Lab 10/15/17 05:11 Ordered BASIC METABOLIC PANEL,BMP [CHEM] AM Lab 10/16/17 05:11 Ordered BASIC METABOLIC PANEL,BMP [CHEM] AM Lab 10/17/17 05:11 Ordered C-REACTIVE PROTEIN [CHEM] AM Lab 10/15/17 05:11 Ordered C-REACTIVE PROTEIN [CHEM] AM Lab 10/16/17 05:11 Ordered C-REACTIVE PROTEIN [CHEM] AM Lab 10/17/17 05:11 Ordered C-REACTIVE PROTEIN [CHEM] AM Lab 10/18/17 05:11 Ordered CBC WITH AUTO DIFF [HEME] AM Lab 10/15/17 05:11 Ordered CBC WITH AUTO DIFF [HEME] AM Lab 10/16/17 05:11 Ordered CBC WITH AUTO DIFF [HEME] AM Lab 10/17/17 05:11 Ordered CBC WITH AUTO DIFF [HEME] AM Lab 10/18/17 05:11 Ordered CRP [C-REACTIVE PROTEIN] [CHEM] Stat Lab 10/14/17 16:15 Received CULTURE URINE [RM] Stat Lab 10/14/17 16:15 Received INR,PT,PROTHROMBIN TIME [COAG] AM Lab 10/15/17 05:11 Ordered INR,PT,PROTHROMBIN TIME [COAG] AM Lab 10/16/17 05:11 Ordered INR,PT,PROTHROMBIN TIME [COAG] AM Lab 10/17/17 05:11 Ordered INR,PT,PROTHROMBIN TIME [COAG] AM Lab 10/18/17 05:11 Ordered MAGNESIUM [CHEM] AM Lab 10/15/17 05:11 Ordered MAGNESIUM [CHEM] AM Lab 10/16/17 05:11 Ordered MAGNESIUM [CHEM] AM Lab 10/17/17 05:11 Ordered MAGNESIUM [CHEM] AM Lab 10/18/17 05:11 Ordered UA W/MICROSCOPIC [URIN] Stat Lab 10/14/17 16:15 Ordered URIC ACID [CHEM] Stat Lab 10/14/17 16:15 Received URIC ACID, URINE Stat Lab 10/14/17 16:15 Received Acetaminophen Med 10/14/17 20:38 Ordered 650 mg PO Q4H PRN Acetaminophen/HYDROcodone [[place] 325-5 MG] Med 10/14/17 20:38 Active 1 tab PO Q4H PRN Albuterol/Ipratropium [DuoNeb 3.0-0.5 MG/3 ML] Med 10/14/17 20:38 Active 3 ml NEB Q4H PRN Allopurinol [Zyloprim] Med 10/15/17 09:00 Ordered 100 mg PO DAILY Bisacodyl [Dulcolax] Med 10/14/17 20:38 Ordered 1 supp RECTAL DAILY PRN Bisacodyl [Dulcolax] Med 10/14/17 20:38 Active 5 mg PO DAILY PRN Carvedilol [Coreg] Med 10/14/17 21:00 Ordered 3.125 mg PO BID Dextrose 50% in Water Med 10/14/17 20:46 Active 50 ml IVPUSH ASDIRECTED PRN Diltiazem HCl Med 10/14/17 20:45 Ordered 240 mg PO Q48H Docusate Sodium [Colace] Med 10/15/17 09:00 Ordered 100 mg PO DAILY Docusate Sodium/Sennosides [Senna Plus] Med 10/14/17 20:38 Active 1 tab PO BID PRN Ferrous Sulfate [Ferrous Sulfate] Med 10/14/17 21:00 Ordered 325 mg PO BID Finasteride [Proscar] Med 10/15/17 09:00 Ordered 5 mg PO DAILY HYDROmorphone [Dilaudid] Med 10/14/17 20:38 Active 0.25 mg IVPUSH Q2H PRN Ibuprofen [Motrin] Med 10/14/17 20:38 Active 400 mg PO Q6H PRN Insulin Aspart [NovoLOG] Med 10/14/17 22:00 Pending See Protocol SUBCUT QIDACANDBED Insulin Glarg,Human.Rec.Analog Med 10/15/17 09:00 Ordered 50 units SUBCUT DAILY LORazepam [Ativan] Med 10/14/17 20:38 Active 0.5 mg IV Q6H PRN LORazepam [Ativan] Med 10/14/17 20:37 Active 2 mg IVPUSH Q4H PRN Lisinopril [Lisinopril] Med 10/15/17 09:00 Ordered 5 mg PO DAILY Magnesium Hydroxide [Milk of Magnesia] Med 10/14/17 20:38 Active 30 ml PO Q12H PRN Magnesium Rep Pharmacy to Dose [Pharmacy to Dose - Med 10/14/17 20:45 Pending Magnesium Replacement] 1 dose .XX ASDIRECTED Metoprolol Tartrate [Lopressor] Med 10/14/17 20:37 Active 5 mg IVPUSH Q4H PRN Ondansetron [Zofran] Med 10/14/17 20:38 Active 4 mg IV Q6H PRN Polyethylene Glycol 3350 [MiraLAX] Med 10/14/17 20:38 Active 17 gm PO DAILY PRN Potassium Rep Pharmacy to Dose [Pharmacy to Dose - Med 10/14/17 20:45 Pending Potassium Replacement] 1 dose .XX ASDIRECTED Promethazine [Phenergan] 12.5 mg Med 10/14/17 20:38 Active Sodium Chloride 0.9% [Normal Saline] 50 ml IV Q6H Sertraline Med 10/14/17 21:00 Ordered 100 mg PO BEDTIME Sodium Chloride 0.9% [Normal Saline] 1,000 ml Med 10/14/17 20:45 Active IV ASDIRECTED Sodium Chloride 0.9% [Saline Flush] Med 10/14/17 15:48 Active 10 ml FLUSH ASDIRECTED PRN Temazepam [Restoril] Med 10/14/17 20:38 Active 7.5 mg PO BEDTIME PRN Tiotropium [Spiriva HandiHaler] Med 10/15/17 09:00 Ordered 1 inh PO DAILY Warfarin [Coumadin] Med 10/15/17 09:00 Ordered 2.5 mg PO DAILY atorvaSTATin Med 10/14/17 21:00 Ordered 40 mg PO BEDTIME cefTRIAXone [Rocephin] 1 gm Med 10/15/17 18:00 Active Sodium Chloride 0.9% [Normal Saline] 100 ml IV Q24H hydrALAZINE [Apresoline] Med 10/14/17 20:37 Active 20 mg IVPUSH Q4H PRN Peripheral IV Insertion Adult [OM.PC] Stat Oth 10/14/17 15:48 Ordered Resuscitation Status Routine Resus Stat 10/14/17 20:38 Ordered Medication Orders Hydrocodone Bitart/Acetaminophen ([place] 325-5 Mg) 1 tab PO Q4H PRN PRN Reason: Pain (moderate 4-6) Albuterol/Ipratropium (Duoneb 3.0-0.5 Mg/3 Ml) 3 ml NEB Q4H PRN PRN Reason: Shortness Of Breath/wheezing Bisacodyl (Dulcolax) 5 mg PO DAILY PRN PRN Reason: Constipation Dextrose/Water (Dextrose 50% In Water) 50 ml IVPUSH ASDIRECTED PRN PRN Reason: Hypoglycemia Hydralazine HCl (Apresoline) 20 mg IVPUSH Q4H PRN PRN Reason: Hypertension Hydromorphone HCl (Dilaudid) 0.25 mg IVPUSH Q2H PRN PRN Reason: Pain (severe 7-10) Promethazine HCl 12.5 mg/ (Sodium Chloride) 50.5 mls @ 100 mls/hr IV Q6H PRN PRN Reason: Nausea/Vomiting Sodium Chloride (Normal Saline) 1,000 mls @ 75 mls/hr IV ASDIRECTED CHARITO Ceftriaxone Sodium 1 gm/ (Sodium Chloride) 100 mls @ 200 mls/hr IV Q24H CHARITO Ibuprofen (Motrin) 400 mg PO Q6H PRN PRN Reason: Pain (mild 1-3) Insulin Aspart (Novolog) 0 unit SUBCUT QIDACANDBED CHARITO; Protocol Lorazepam (Ativan) 2 mg IVPUSH Q4H PRN PRN Reason: Seizures Lorazepam (Ativan) 0.5 mg IV Q6H PRN PRN Reason: Anxiety Magnesium Hydroxide (Milk Of Magnesia) 30 ml PO Q12H PRN PRN Reason: Constipation Magnesium Sulfate (Pharmacy To Dose - Magnesium Replacement) 1 dose .XX ASDIRECTED CHARITO Metoprolol Tartrate (Lopressor) 5 mg IVPUSH Q4H PRN PRN Reason: Tachycardia Non-Formulary Medication (Acetaminophen) 650 mg PO Q4H PRN PRN Reason: Pain Non-Formulary Medication (Allopurinol [Zyloprim]) 100 mg PO DAILY CHARITO Non-Formulary Medication (Atorvastatin) 40 mg PO BEDTIME CHARITO Non-Formulary Medication (Bisacodyl [Dulcolax]) 1 supp RECTAL DAILY PRN PRN Reason: Constipation Non-Formulary Medication (Carvedilol [Coreg]) 3.125 mg PO BID CHARITO Non-Formulary Medication (Diltiazem Hcl) 240 mg PO Q48H CHARITO Non-Formulary Medication (Docusate Sodium [Colace]) 100 mg PO DAILY CHARITO Non-Formulary Medication (Ferrous Sulfate [Ferrous Sulfate]) 325 mg PO BID CHARITO Non-Formulary Medication (Finasteride [Proscar]) 5 mg PO DAILY CHARITO Non-Formulary Medication (Insulin Glarg,Human.Rec.Analog) 50 units SUBCUT DAILY CHARITO Non-Formulary Medication (Lisinopril [Lisinopril]) 5 mg PO DAILY CHARITO Non-Formulary Medication (Sertraline) 100 mg PO BEDTIME CHARITO Non-Formulary Medication (Tiotropium [Spiriva Handihaler]) 1 inh PO DAILY CHARITO Non-Formulary Medication (Warfarin [Coumadin]) 2.5 mg PO DAILY CHARITO Ondansetron HCl (Zofran) 4 mg IV Q6H PRN PRN Reason: Nausea/Vomiting Polyethylene Glycol (Miralax) 17 gm PO DAILY PRN PRN Reason: Constipation Potassium Chloride (Pharmacy To Dose - Potassium Replacement) 1 dose .XX ASDIRECTED CHARITO Senna/Docusate Sodium (Senna Plus) 1 tab PO BID PRN PRN Reason: Constipation Sodium Chloride (Saline Flush) 10 ml FLUSH ASDIRECTED PRN PRN Reason: Keep Vein Open Last Admin: 10/14/17 16:27 Dose: 10 ml Temazepam (Restoril) 7.5 mg PO BEDTIME PRN PRN Reason: Sleep Assessment/Plan Comment:: Assessment/Plan: Acute: UTI - Risk Factor: BPH, Recurrent UTI, Possible Neurogenic Bladder and Poor Hygiene (smell foul urine) - Recently hospitalized in [place] for similar episode - UA pos today - IV Rocephin 1 gm daily - Continue Proscar 5 mg po daily Left Knee Contusion Pain S/p Fall - DDx: Inflammatory OA vs Acute Gout - No obvious skin break or lesion - Risk Factor: Right sided residual weakness from hx/o CVA and Gait Instability - Has lower extremity brace orthosis - X-ray/CT scan reports read joint effusion and and diffuse subcutaneous edema. Osteoporosis. No acute bony abnormality is appreciated - Naproxern 500 mg po BID and Dexamethasone 4 mg po BID x 4 doses only first dose in AM for anti-inflammation and edema - PT/OT consult Chronic: Cardiac Dysrhythmia/Atrial Arrythmia, on Warfarin HLD DM2 BPH MIKIE Pulmonary Insufficiency/RAD Osteoporosis Gout Hx/o MRSA Depression H/o CVA with Residual Right Sided Weakness Plan: Admit to the floor with Tele Resume Home Meds Routine AM Labs A1C/Vit D/TFT in AM Accu-check with ISS QID AC/HS PT/OT consult Obtain Chart in PCP in AM SW/CM for d/c planning Code Status: CPR only
--- NOTE | 2017-10-15 08:37 | CT ---
CT left knee Technique: Multiple axial sections through the left knee were obtained. Reconstructed coronal and sagittal images were obtained. Intravenous contrast was not utilized. Comparison: Previous left knee radiographic study performed earlier on the same day (1:20 PM) Findings: Diffuse osteoporosis is seen. No fracture is appreciated. Joint effusion is seen as well as surrounding subcutaneous edema. Impression: 1. Joint effusion and diffuse subcutaneous edema. 2. Osteoporosis. 3. No acute bony abnormality is appreciated. Diagnostic code #3 [id number]
[2017-10-15] MEDS: Famotidine 20 MG Tab PO SCH ×2 (08:57→21:08)
[2017-10-15] MEDS: Naproxen 500 MG Tab PO SCH ×2 (08:57→21:09)
[2017-10-15] MEDS: Dexamethasone 4 MG Tab PO SCH ×2 (08:58→21:09)
[2017-10-15] MEDS ORDERED: Magnesium Oxide 400 MG Tab PO ONE (09:00)
[2017-10-15] MEDS ORDERED: cefTRIAXone 1 GM in Sodium Chloride 0.9% 100 ML IV SCH (09:00)
[2017-10-15] MEDS ORDERED: Non-Formulary Medication 1 Each (Alendronate Sodium 70 MG) PO SCH (09:00)
[2017-10-15] MEDS ORDERED: TIOTROPIUM 18 MCG INH SCH (09:45)
[2017-10-15] MEDS ORDERED: LISINOPRIL 5 MG PO SCH (09:45)
[2017-10-15] MEDS ORDERED: DILTIAZEM 240 MG PO SCH (10:00)
[2017-10-15] MEDS ORDERED: [UNRECOGNIZED DRUG - OTHER] SUBCUT SCH (10:00)
[2017-10-15] MEDS ORDERED: FINASTERIDE 5 MG PO SCH (10:00)
[2017-10-15] MEDS ORDERED: INSULIN GLARGINE SUBCUT SCH (10:00)
[2017-10-15] MEDS ORDERED: CARVEDILOL 6.25 MG PO SCH (10:15)
[2017-10-15] MEDS: INSULIN ASPART 100 UNIT/ML SUBCUT SCH ×2 (10:37→10:57)
[2017-10-15] MEDS: Allopurinol 100 MG Tab PO SCH (10:39)
[2017-10-15] MEDS: Docusate Sodium 100 MG Cap PO SCH (10:49)
[2017-10-15] MEDS: Ferrous Sulfate 325 MG Tab PO SCH ×2 (10:49→21:09)
[2017-10-15] MEDS: Rosuvastatin 10 MG Tab PO SCH (15:00)
[2017-10-15] MEDS: Insulin Aspart 100 Units/ML 3 ML Pen SUBCUT SCH ×2 (17:19→21:12)
[2017-10-15] MEDS ORDERED: cefTRIAXone 1 GM in Dextrose 5% in Water 100 ML IV SCH ×2 (18:00)
--- NOTE | 2017-10-15 20:26 | PCM.PN ---
- General Info Date of Service: 10/15/17 Admission Dx/Problem (Free Text): Admission Diagnosis/Problem Admission Diagnosis/Problem UTI, Urinary tract infectious disease Subjective Update: Follow Up Functional Status: Reports: Pain Controlled, Tolerating Diet, Urinating. Denies : New Symptoms Pain Score: 3 - Review of Systems General: Denies: Fever, Fatigue, Chills HEENT: Reports: No Symptoms Pulmonary: Denies: Shortness of Breath Cardiovascular: Denies: Chest Pain, Palpitations, Dyspnea on Exertion Gastrointestinal: Denies: Abdominal Pain, Difficulty Swallowing, Nausea, Vomiting Genitourinary: Reports: No Symptoms Musculoskeletal: Reports: Other (knee pain ) Skin: Denies: Cyanosis, Mottled, Pallor, Diaphoresis, Bruising Neurological: Reports: Pre-Existing Deficit, Trouble Speaking, Difficulty Walking, Gait Disturbance. Denies: Confusion, Weakness Psychiatric: Denies: No Symptoms, Depression, Anxiety, Cravings, Hallucinations Systems Review Comment:: No significant overnight or acute issues. He slept pretty good. His pain is controlled. He is afebrile and his WBC is now within normal limits. His CRP is about the same at 4 with a slightly low Mg level of 1.7. Patient would like to have his knee joint fluid drained. - Patient Data Vitals - Most Recent: Last Vital Signs Temp 36.7 C 10/15/17 16:27 Pulse 52 L 10/15/17 16:27 Resp 20 10/15/17 16:27 BP 139/77 10/15/17 16:27 Pulse Ox 91 L 10/15/17 16:27 Weight - Most Recent: 92.624 kg I&O - Last 24 Hours: Intake & Output 10/15/17 10/15/17 10/15/17 06:59 14:59 22:59 Intake Total 760 202 7077 Output Total 225 300 Balance 741 829 [id number] Lab Results Last 24 Hours: Laboratory Results - last 24 hr 10/14/17 10/14/17 10/15/17 Range/Units 16:15 22:57 06:06 WBC 8.99 (4.23-9.07) K/mm3 RBC 4.71 (4.63-6.08) M/mm3 Hgb 12.4 L (13.7-17.5) gm/L Hct 37.9 L (40.1-51.0) % MCV 80.5 (79.0-92.2) fl MCH 26.3 (25.7-32.2) pg MCHC 32.7 (32.2-35.5) g/dl RDW Std Deviation 45.0 H (35.1-43.9) fL Plt Count 161 L (163-337) K/mm3 MPV 11.0 (9.4-12.3) fl Neut % (Auto) 70.5 H (34.0-67.9) % Lymph % (Auto) 15.6 L (21.8-53.1) % Sharp % (Auto) 9.8 (5.3-12.2) % Eos % (Auto) 3.6 (0.8-7.0) Baso % (Auto) 0.3 (0.1-1.2) % Neut # (Auto) 6.34 H (1.78-5.38) K/mm3 Lymph # (Auto) 1.40 (1.32-3.57) K/mm3 Sharp # (Auto) 0.88 H (0.30-0.82) K/mm3 Eos # (Auto) 0.32 (0.04-0.54) K/mm3 Baso # (Auto) 0.03 (0.01-0.08) K/mm3 PT (9.5-12.1) SECONDS INR Sodium (136-145) mEq/L Potassium (3.5-5.1) mEq/L Chloride (98-107) mEq/L Carbon Dioxide (21-32) mEq/L Anion Gap (5-15) BUN (7-18) mg/dL Creatinine (0.7-1.3) mg/dL Est Cr Clr Drug Dosing mL/min Estimated GFR (MDRD) (>60) mL/min BUN/Creatinine Ratio (14-18) Glucose (83-115) mg/dL POC Glucose 156 H (83-110) mg/dL Hemoglobin A1c (4.50-6.20) % Uric Acid 4.9 (3.5-7.2) mg/dL Calcium (8.5-10.1) mg/dL Magnesium (1.8-2.4) mg/dl C-Reactive Protein 4.0 H* (<1.0) mg/dL Vitamin D 25-Hydroxy (30-100) ng/mL Free T4 (0.76-1.46) ng/dL TSH 3rd Generation (0.358-3.74) uIU/mL 10/15/17 10/15/17 10/15/17 Range/Units 06:06 06:06 06:06 WBC (4.23-9.07) K/mm3 RBC (4.63-6.08) M/mm3 Hgb (13.7-17.5) gm/L Hct (40.1-51.0) % MCV (79.0-92.2) fl MCH (25.7-32.2) pg MCHC (32.2-35.5) g/dl RDW Std Deviation (35.1-43.9) fL Plt Count (163-337) K/mm3 MPV (9.4-12.3) fl Neut % (Auto) (34.0-67.9) % Lymph % (Auto) (21.8-53.1) % Sharp % (Auto) (5.3-12.2) % Eos % (Auto) (0.8-7.0) Baso % (Auto) (0.1-1.2) % Neut # (Auto) (1.78-5.38) K/mm3 Lymph # (Auto) (1.32-3.57) K/mm3 Sharp # (Auto) (0.30-0.82) K/mm3 Eos # (Auto) (0.04-0.54) K/mm3 Baso # (Auto) (0.01-0.08) K/mm3 PT 34.6 H (9.5-12.1) SECONDS INR 3.25 Sodium 142 (136-145) mEq/L Potassium 3.8 (3.5-5.1) mEq/L Chloride 107 (98-107) mEq/L Carbon Dioxide 25 (21-32) mEq/L Anion Gap 13.8 (5-15) BUN 15 (7-18) mg/dL Creatinine 1.0 (0.7-1.3) mg/dL Est Cr Clr Drug Dosing 58.94 mL/min Estimated GFR (MDRD) > 60 (>60) mL/min BUN/Creatinine Ratio 15.0 (14-18) Glucose 113 (83-115) mg/dL POC Glucose (83-110) mg/dL Hemoglobin A1c 6.10 (4.50-6.20) % Uric Acid (3.5-7.2) mg/dL Calcium 8.7 (8.5-10.1) mg/dL Magnesium 1.7 L (1.8-2.4) mg/dl C-Reactive Protein 4.2 H* (<1.0) mg/dL Vitamin D 25-Hydroxy (30-100) ng/mL Free T4 1.41 (0.76-1.46) ng/dL TSH 3rd Generation 2.313 (0.358-3.74) uIU/mL 10/15/17 10/15/17 10/15/17 Range/Units 06:06 07:22 10:29 WBC (4.23-9.07) K/mm3 RBC (4.63-6.08) M/mm3 Hgb (13.7-17.5) gm/L Hct (40.1-51.0) % MCV (79.0-92.2) fl MCH (25.7-32.2) pg MCHC (32.2-35.5) g/dl RDW Std Deviation (35.1-43.9) fL Plt Count (163-337) K/mm3 MPV (9.4-12.3) fl Neut % (Auto) (34.0-67.9) % Lymph % (Auto) (21.8-53.1) % Sharp % (Auto) (5.3-12.2) % Eos % (Auto) (0.8-7.0) Baso % (Auto) (0.1-1.2) % Neut # (Auto) (1.78-5.38) K/mm3 Lymph # (Auto) (1.32-3.57) K/mm3 Sharp # (Auto) (0.30-0.82) K/mm3 Eos # (Auto) (0.04-0.54) K/mm3 Baso # (Auto) (0.01-0.08) K/mm3 PT (9.5-12.1) SECONDS INR Sodium (136-145) mEq/L Potassium (3.5-5.1) mEq/L Chloride (98-107) mEq/L Carbon Dioxide (21-32) mEq/L Anion Gap (5-15) BUN (7-18) mg/dL Creatinine (0.7-1.3) mg/dL Est Cr Clr Drug Dosing mL/min Estimated GFR (MDRD) (>60) mL/min BUN/Creatinine Ratio (14-18) Glucose (83-115) mg/dL POC Glucose 141 H 138 H (83-110) mg/dL Hemoglobin A1c (4.50-6.20) % Uric Acid (3.5-7.2) mg/dL Calcium (8.5-10.1) mg/dL Magnesium (1.8-2.4) mg/dl C-Reactive Protein (<1.0) mg/dL Vitamin D 25-Hydroxy 32 (30-100) ng/mL Free T4 (0.76-1.46) ng/dL TSH 3rd Generation (0.358-3.74) uIU/mL 10/15/17 Range/Units 17:17 WBC (4.23-9.07) K/mm3 RBC (4.63-6.08) M/mm3 Hgb (13.7-17.5) gm/L Hct (40.1-51.0) % MCV (79.0-92.2) fl MCH (25.7-32.2) pg MCHC (32.2-35.5) g/dl RDW Std Deviation (35.1-43.9) fL Plt Count (163-337) K/mm3 MPV (9.4-12.3) fl Neut % (Auto) (34.0-67.9) % Lymph % (Auto) (21.8-53.1) % Sharp % (Auto) (5.3-12.2) % Eos % (Auto) (0.8-7.0) Baso % (Auto) (0.1-1.2) % Neut # (Auto) (1.78-5.38) K/mm3 Lymph # (Auto) (1.32-3.57) K/mm3 Sharp # (Auto) (0.30-0.82) K/mm3 Eos # (Auto) (0.04-0.54) K/mm3 Baso # (Auto) (0.01-0.08) K/mm3 PT (9.5-12.1) SECONDS INR Sodium (136-145) mEq/L Potassium (3.5-5.1) mEq/L Chloride (98-107) mEq/L Carbon Dioxide (21-32) mEq/L Anion Gap (5-15) BUN (7-18) mg/dL Creatinine (0.7-1.3) mg/dL Est Cr Clr Drug Dosing mL/min Estimated GFR (MDRD) (>60) mL/min BUN/Creatinine Ratio (14-18) Glucose (83-115) mg/dL POC Glucose 225 H (83-110) mg/dL Hemoglobin A1c (4.50-6.20) % Uric Acid (3.5-7.2) mg/dL Calcium (8.5-10.1) mg/dL Magnesium (1.8-2.4) mg/dl C-Reactive Protein (<1.0) mg/dL Vitamin D 25-Hydroxy (30-100) ng/mL Free T4 (0.76-1.46) ng/dL TSH 3rd Generation (0.358-3.74) uIU/mL Med Orders - Current: Current Medications Acetaminophen (Tylenol) 650 mg PO Q4H PRN PRN Reason: Pain Hydrocodone Bitart/Acetaminophen ([place] 325-5 Mg) 1 tab PO Q4H PRN PRN Reason: Pain (moderate 4-6) Albuterol/Ipratropium (Duoneb 3.0-0.5 Mg/3 Ml) 3 ml NEB Q4H PRN PRN Reason: Shortness Of Breath/wheezing Allopurinol (Zyloprim) 100 mg PO DAILY [facility] Last Admin: 10/15/17 10:39 Dose: 100 mg Bisacodyl (Dulcolax) 5 mg PO DAILY PRN PRN Reason: Constipation Bisacodyl (Dulcolax) 10 mg RECTAL DAILY PRN PRN Reason: Constipation Carvedilol (Coreg) 3.125 mg PO BID [facility] Dexamethasone (Dexamethasone) 4 mg PO BID [facility] Stop: 10/16/17 21:01 Last Admin: 10/15/17 08:58 Dose: 4 mg Dextrose/Water (Dextrose 50% In Water) 50 ml IVPUSH ASDIRECTED PRN PRN Reason: Hypoglycemia Diltiazem HCl (Dilacor Xr) 240 mg PO Q48H [facility] Docusate Sodium (Colace) 100 mg PO DAILY [facility] Last Admin: 10/15/17 10:49 Dose: 100 mg Famotidine (Pepcid) 20 mg PO BID [facility] Last Admin: 10/15/17 08:57 Dose: 20 mg Ferrous Sulfate (Ferrous Sulfate) 325 mg PO BID [facility] Last Admin: 10/15/17 10:49 Dose: 325 mg Finasteride (Proscar) 5 mg PO DAILY [facility] Hydralazine HCl (Apresoline) 20 mg IVPUSH Q4H PRN PRN Reason: Hypertension Hydromorphone HCl (Dilaudid) 0.25 mg IVPUSH Q2H PRN PRN Reason: Pain (severe 7-10) Promethazine HCl 12.5 mg/ (Sodium Chloride) 50.5 mls @ 100 mls/hr IV Q6H PRN PRN Reason: Nausea/Vomiting Ceftriaxone Sodium 1 gm/ (Dextrose/Water) 100 mls @ 200 mls/hr IV Q24H [facility] Last Admin: 10/15/17 17:21 Dose: 200 mls/hr Ibuprofen (Motrin) 400 mg PO Q6H PRN PRN Reason: Pain (mild 1-3) Insulin Aspart (Novolog) 0 unit SUBCUT QIDACANDBED [facility]; Protocol Last Admin: 10/15/17 17:19 Dose: 2 units Insulin Detemir (Levemir) 25 unit SUBCUT BID [facility] Lisinopril (Prinivil) 5 mg PO DAILY [facility] Lorazepam (Ativan) 2 mg IVPUSH Q4H PRN PRN Reason: Seizures Lorazepam (Ativan) 0.5 mg IV Q6H PRN PRN Reason: Anxiety Magnesium Hydroxide (Milk Of Magnesia) 30 ml PO Q12H PRN PRN Reason: Constipation Magnesium Sulfate (Pharmacy To Dose - Magnesium Replacement) 1 dose .XX ASDIRECTED [facility] Metoprolol Tartrate (Lopressor) 5 mg IVPUSH Q4H PRN PRN Reason: Tachycardia Naproxen (Naprosyn) 500 mg PO Q12HR [facility] Stop: 10/16/17 21:01 Last Admin: 10/15/17 08:57 Dose: 500 mg Ondansetron HCl (Zofran) 4 mg IV Q6H PRN PRN Reason: Nausea/Vomiting Polyethylene Glycol (Miralax) 17 gm PO DAILY PRN PRN Reason: Constipation Potassium Chloride (Pharmacy To Dose - Potassium Replacement) 1 dose .XX ASDIRECTED [facility] Rosuvastatin Calcium (Crestor) 20 mg PO DAILY [facility] Last Admin: 10/15/17 15:00 Dose: 20 mg Senna/Docusate Sodium (Senna Plus) 1 tab PO BID PRN PRN Reason: Constipation Sertraline HCl (Zoloft) 100 mg PO BEDTIME [facility] Sodium Chloride (Saline Flush) 10 ml FLUSH ASDIRECTED PRN PRN Reason: Keep Vein Open Last Admin: 10/14/17 16:27 Dose: 10 ml Temazepam (Restoril) 7.5 mg PO BEDTIME PRN PRN Reason: Sleep Tiotropium [place] (Spiriva Handihaler) 18 mcg INH DAILY [facility] Discontinued Medications Carvedilol (Coreg) 3.125 mg PO BID [facility] Last Admin: 10/15/17 10:40 Dose: 3.125 mg Diltiazem HCl (Dilacor Xr) 240 mg PO Q48H [facility] Last Admin: 10/15/17 10:33 Dose: 240 mg Finasteride (Proscar) 5 mg PO DAILY [facility] Last Admin: 10/15/17 10:37 Dose: 5 mg Ceftriaxone Sodium 2 gm/ (Sodium Chloride) 100 mls @ 100 mls/hr IV ONETIME ONE Stop: 10/14/17 18:29 Last Admin: 10/14/17 18:00 Dose: 100 mls/hr Sodium Chloride (Normal Saline) 1,000 mls @ 75 mls/hr IV ASDIRECTED [facility] Last Admin: 10/14/17 23:11 Dose: 75 mls/hr Ceftriaxone Sodium 1 gm/ (Sodium Chloride) 100 mls @ 200 mls/hr IV Q24H [facility] Lisinopril (Prinivil) 5 mg PO DAILY [facility] Last Admin: 10/15/17 10:32 Dose: 5 mg Magnesium Oxide (Magnesium Oxide) 800 mg PO ONETIME ONE Stop: 10/15/17 09:01 Last Admin: 10/15/17 08:57 Dose: 800 mg Non-Formulary Medication (Alendronate Sodium) 70 mg PO DAILY [facility] Non-Formulary Medication (Insulin Aspart [Novolog]) 4 units SUBCUT BID [facility] Atorvastatin 80 Mg 0 each PO BEDTIME [facility] Last Admin: 10/15/17 11:10 Dose: Not Given Insulin Glarg,Human. Rec.Analog 10 Ml Vial 0 each SUBCUT DAILY [facility] Last Admin: 10/15/17 10:52 Dose: 1 each Sertraline 100 Mg 0 each PO BEDTIME [facility] Last Admin: 10/15/17 11:10 Dose: Not Given Insulin Aspart 100 (Units/Ml 10 Ml Vial) 0 each SUBCUT QIDACANDBED [facility]; Protocol Last Admin: 10/15/17 10:57 Dose: Not Given Tiotropium [place] (Spiriva Handihaler) 18 mcg INH DAILY [facility] Last Admin: 10/15/17 11:26 Dose: 1 cap Warfarin Sodium (Coumadin) 5 mg PO MoFr@0900 [facility] Warfarin Sodium (Coumadin) 2.5 mg PO SuTuWeThSa@0900 [facility] - Exam General: Alert, Oriented, Cooperative, No Acute Distress, Other (Left sided weakness) HEENT: Pupils Equal, Pupils Reactive, EOMI, Mucous Membr. Moist/[place] Neck: Supple, Trachea Midline, No JVD Lungs: Clear to Auscultation, Normal Respiratory Effort Cardiovascular: Regular Rate, Regular Rhythm GI/Abdominal Exam: Normal Bowel Sounds, Soft, Non-Tender, No Organomegaly, No Distention, No Abnormal Bruit (Male) Exam: Deferred Back Exam: Normal Inspection, Decreased Range of Motion Extremities: Normal Inspection, Normal Range of Motion, Normal Capillary Refill , Joint Swelling (left knee), Limited Range of Motion (left knee), Redness ( less redness on left knee) Peripheral Pulses: 2+: Dorsalis Pedis (L), Dorsalis Pedis (R) Skin: Warm, Dry, Intact Neurological: No New Focal Deficit. No: Normal Speech, Strength Equal Bilateral , Reflexes Equal Bilateral, Sensation Intact Psy/Mental Status: Alert, Normal Affect, Normal Mood. No: Anxious, Agitated, Suicidal Ideation, Homicidal Ideation, Hallucinations - Problem List Review Problem List Initiated/Reviewed/Updated: Yes - My Orders Last 24 Hours: My Active Orders 10/14/17 20:37 LORazepam [Ativan] 2 mg IVPUSH Q4H PRN Metoprolol Tartrate [Lopressor] 5 mg IVPUSH Q4H PRN hydrALAZINE [Apresoline] 20 mg IVPUSH Q4H PRN 10/14/17 20:38 Height and Weight [RC] 04 Up With Assistance [RC] ASDIRECTED Up ad Kecia [RC] ASDIRECTED Acetaminophen [Tylenol] 650 mg PO Q4H PRN Acetaminophen/HYDROcodone [[place] 325-5 MG] 1 tab PO Q4H PRN Albuterol/Ipratropium [DuoNeb 3.0-0.5 MG/3 ML] 3 ml NEB Q4H PRN Bisacodyl [Dulcolax] 10 mg RECTAL DAILY PRN Bisacodyl [Dulcolax] 5 mg PO DAILY PRN Docusate Sodium/Sennosides [Senna Plus] 1 tab PO BID PRN HYDROmorphone [Dilaudid] 0.25 mg IVPUSH Q2H PRN Ibuprofen [Motrin] 400 mg PO Q6H PRN LORazepam [Ativan] 0.5 mg IV Q6H PRN Magnesium Hydroxide [Milk of Magnesia] 30 ml PO Q12H PRN Ondansetron [Zofran] 4 mg IV Q6H PRN Polyethylene Glycol 3350 [MiraLAX] 17 gm PO DAILY PRN Promethazine [Phenergan] 12.5 mg Sodium Chloride 0.9% [Normal Saline] 50 ml IV Q6H Temazepam [Restoril] 7.5 mg PO BEDTIME PRN Resuscitation Status Routine 10/14/17 20:39 Intake and Output [RC] 04,16 Oxygen Therapy [RC] PRN VTE/DVT Education [RC] PER UNIT ROUTINE Vital Signs [RC] Q4H 10/14/17 20:42 RT Aerosol Therapy [RC] ASDIRECTED Consult to Case Management [CONS] Routine Consult to Events Specialist [CONS] Routine Consult to Spiritual Care [CONS] Routine OT Evaluation and Treatment [CONS] Routine PT Evaluation and Treatment [CONS] Routine 10/14/17 20:45 Magnesium Rep Pharmacy to Dose [Pharmacy to Dose - Magnesium Replacement] 1 dose .XX ASDIRECTED Potassium Rep Pharmacy to Dose [Pharmacy to Dose - Potassium Replacement] 1 dose .XX ASDIRECTED 10/14/17 20:46 Blood Glucose Check, Bedside [RC] QIDACANDBED Dextrose 50% in Water 50 ml IVPUSH ASDIRECTED PRN 10/15/17 09:00 Dexamethasone 4 mg PO BID Famotidine [Pepcid] 20 mg PO BID Naproxen [Naprosyn] 500 mg PO Q12HR 10/15/17 10:00 Allopurinol [Zyloprim] 100 mg PO DAILY Docusate Sodium [Colace] 100 mg PO DAILY Ferrous Sulfate 325 mg PO BID 10/15/17 14:25 Consult to Speech Language Pathology [PRECISION GRINDER EXTERNAL Evaluation and Treatment] [CONS] Routine 10/15/17 14:45 Rosuvastatin [Crestor] 20 mg PO DAILY 10/15/17 17:00 Insulin Aspart [NovoLOG] 0 unit SUBCUT QIDACANDBED 10/15/17 18:00 cefTRIAXone [Rocephin] 1 gm Dextrose 5% in Water 100 ml IV Q24H 10/15/17 21:00 Carvedilol [Coreg] 3.125 mg PO BID Sertraline [Zoloft] 100 mg PO BEDTIME 10/16/17 05:11 BASIC METABOLIC PANEL,BMP [CHEM] AM C-REACTIVE PROTEIN [CHEM] AM CBC WITH AUTO DIFF [HEME] AM INR,PT,PROTHROMBIN TIME [COAG] AM MAGNESIUM [CHEM] AM 10/16/17 09:00 Finasteride [Proscar] 5 mg PO DAILY Insulin Detemir [Levemir] 25 unit SUBCUT BID Lisinopril [Prinivil] 5 mg PO DAILY Tiotropium [Spiriva HandiHaler] 18 mcg INH DAILY 10/17/17 05:11 BASIC METABOLIC PANEL,BMP [CHEM] AM C-REACTIVE PROTEIN [CHEM] AM CBC WITH AUTO DIFF [HEME] AM INR,PT,PROTHROMBIN TIME [COAG] AM MAGNESIUM [CHEM] AM 10/17/17 10:00 Diltiazem [Dilacor XR] 240 mg PO Q48H 10/18/17 05:11 C-REACTIVE PROTEIN [CHEM] AM CBC WITH AUTO DIFF [HEME] AM INR,PT,PROTHROMBIN TIME [COAG] AM MAGNESIUM [CHEM] AM - Plan Plan:: Assessment/Plan: Acute: UTI - Risk Factor: BPH, Recurrent UTI, Possible Neurogenic Bladder and Poor Hygiene (smell foul urine) - Recently hospitalized in [place] for similar episode - UA pos- awaiting Cx ?? - Continue IV Rocephin 1 gm daily and Proscar 5 mg po daily - Good hygiene habits Left Knee Contusion Pain S/p Fall - Looks much better this AM - DDx: Inflammatory OA vs Acute Gout - No obvious skin break or lesion - Risk Factor: Right sided residual weakness from hx/o CVA and Gait Instability - Has lower extremity brace orthosis - X-ray/CT scan reports read joint effusion and and diffuse subcutaneous edema. Osteoporosis. 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
[2017-10-15] MEDS: Carvedilol 3.125 MG Tab PO SCH (21:09)
[2017-10-15] MEDS: Sertraline 50 MG Tab PO SCH (21:09)
[2017-10-16] MEDS: Insulin Aspart 100 Units/ML 3 ML Pen SUBCUT SCH ×4 (08:52→21:50)
[2017-10-16] MEDS: Insulin Detemir 100 Units/ML 3 ML Pen SUBCUT SCH ×2 (08:54→21:51)
[2017-10-16] MEDS: Allopurinol 100 MG Tab PO SCH (08:54)
[2017-10-16] MEDS: Naproxen 500 MG Tab PO SCH ×2 (08:55→21:32)
[2017-10-16] MEDS: Docusate Sodium 100 MG Cap PO SCH (08:55)
[2017-10-16] MEDS: Dexamethasone 4 MG Tab PO SCH ×2 (08:55→21:29)
[2017-10-16] MEDS: Rosuvastatin 10 MG Tab PO SCH (08:55)
[2017-10-16] MEDS: Famotidine 20 MG Tab PO SCH ×2 (08:55→21:31)
[2017-10-16] MEDS: Carvedilol 3.125 MG Tab PO SCH ×2 (08:56→21:33)
[2017-10-16] MEDS: Ferrous Sulfate 325 MG Tab PO SCH ×2 (08:56→21:40)
[2017-10-16] MEDS ORDERED: Tiotropium Inhaler 18 MCG Inhalation Powder Cap INH SCH (09:00)
[2017-10-16] MEDS ORDERED: Finasteride 5 MG Tab PO SCH (09:00)
[2017-10-16] MEDS ORDERED: WARFARIN 5 MG PO SCH ×2 (09:00)
--- NOTE | 2017-10-16 09:54 | PCM.PN ---
- General Info Date of Service: 10/16/17 Admission Dx/Problem (Free Text): Admission Diagnosis/Problem Admission Diagnosis/Problem UTI, Urinary tract infectious disease Subjective Update: In to see Frank. He is lying in bed doing well. He has no concerns. His left knee was tapped with 19mL bloody output. He reports his knee feels much better now. WBC and glucose have been elevated however he is on a steroid. Otherwise labs look good. Planning on discharge tomorrow to [facility]. Functional Status: Reports: Pain Controlled, Tolerating Diet, Urinating. Denies : New Symptoms - Review of Systems General: Reports: Weakness, Fatigue, Malaise. Denies: Fever HEENT: Reports: No Symptoms Pulmonary: Reports: No Symptoms. Denies: Shortness of Breath, Cough, Sputum, Wheezing Cardiovascular: Reports: No Symptoms. Denies: Chest Pain, Palpitations, Dyspnea on Exertion, Edema Gastrointestinal: Reports: No Symptoms. Denies: Abdominal Pain, Constipation, Diarrhea, Nausea, Vomiting Genitourinary: Reports: No Symptoms Musculoskeletal: Reports: No Symptoms, Joint Pain (left knee post-tap ) Skin: Reports: No Symptoms Neurological: Reports: Pre-Existing Deficit, Trouble Speaking, Difficulty Walking, Weakness, Gait Disturbance Psychiatric: Reports: No Symptoms - Patient Data Vitals - Most Recent: Last Vital Signs Temp 97.3 F 10/16/17 08:24 Pulse 53 L 10/16/17 08:24 Resp 18 10/16/17 08:24 BP 141/72 H 10/16/17 08:24 Pulse Ox 97 10/16/17 08:42 Weight - Most Recent: 206 lb 6.4 oz I&O - Last 24 Hours: Intake & Output 10/15/17 10/16/17 10/16/17 22:59 06:59 14:59 Intake Total 1530 800 Output Total 300 200 Balance 1230 600 Lab Results Last 24 Hours: Laboratory Results - last 24 hr 10/15/17 10/15/17 10/15/17 Range/Units 06:06 10:29 17:17 WBC (4.23-9.07) K/mm3 RBC (4.63-6.08) M/mm3 Hgb (13.7-17.5) gm/L Hct (40.1-51.0) % MCV (79.0-92.2) fl MCH (25.7-32.2) pg MCHC (32.2-35.5) g/dl RDW Std Deviation (35.1-43.9) fL Plt Count (163-337) K/mm3 MPV (9.4-12.3) fl Neut % (Auto) (34.0-67.9) % Lymph % (Auto) (21.8-53.1) % [place] % (Auto) (5.3-12.2) % Eos % (Auto) (0.8-7.0) Baso % (Auto) (0.1-1.2) % Neut # (Auto) (1.78-5.38) K/mm3 Lymph # (Auto) (1.32-3.57) K/mm3 [place] # (Auto) (0.30-0.82) K/mm3 Eos # (Auto) (0.04-0.54) K/mm3 Baso # (Auto) (0.01-0.08) K/mm3 Manual Slide Review PT (9.5-12.1) SECONDS INR Sodium (136-145) mEq/L Potassium (3.5-5.1) mEq/L Chloride (98-107) mEq/L Carbon Dioxide (21-32) mEq/L Anion Gap (5-15) BUN (7-18) mg/dL Creatinine (0.7-1.3) mg/dL Est Cr Clr Drug Dosing mL/min Estimated GFR (MDRD) (>60) mL/min BUN/Creatinine Ratio (14-18) Glucose (83-115) mg/dL POC Glucose 138 H 225 H (83-110) mg/dL Calcium (8.5-10.1) mg/dL Magnesium (1.8-2.4) mg/dl C-Reactive Protein (<1.0) mg/dL Vitamin D 25-Hydroxy 32 (30-100) ng/mL 10/15/17 10/16/17 10/16/17 Range/Units 21:03 06:47 06:49 WBC 9.61 H (4.23-9.07) K/mm3 RBC 4.59 L (4.63-6.08) M/mm3 Hgb 12.2 L (13.7-17.5) gm/L Hct 36.8 L (40.1-51.0) % MCV 80.2 (79.0-92.2) fl MCH 26.6 (25.7-32.2) pg MCHC 33.2 (32.2-35.5) g/dl RDW Std Deviation 43.2 (35.1-43.9) fL Plt Count 172 (163-337) K/mm3 MPV 10.5 (9.4-12.3) fl Neut % (Auto) 87.4 H (34.0-67.9) % Lymph % (Auto) 8.6 L (21.8-53.1) % [place] % (Auto) 3.9 L (5.3-12.2) % Eos % (Auto) 0 L (0.8-7.0) Baso % (Auto) 0.0 L (0.1-1.2) % Neut # (Auto) 8.40 H (1.78-5.38) K/mm3 Lymph # (Auto) 0.83 L (1.32-3.57) K/mm3 [place] # (Auto) 0.37 (0.30-0.82) K/mm3 Eos # (Auto) 0.00 L (0.04-0.54) K/mm3 Baso # (Auto) 0.00 L (0.01-0.08) K/mm3 Manual Slide Review Abnormal smear PT (9.5-12.1) SECONDS INR Sodium (136-145) mEq/L Potassium (3.5-5.1) mEq/L Chloride (98-107) mEq/L Carbon Dioxide (21-32) mEq/L Anion Gap (5-15) BUN (7-18) mg/dL Creatinine (0.7-1.3) mg/dL Est Cr Clr Drug Dosing mL/min Estimated GFR (MDRD) (>60) mL/min BUN/Creatinine Ratio (14-18) Glucose (83-115) mg/dL POC Glucose 237 H 226 H (83-110) mg/dL Calcium (8.5-10.1) mg/dL Magnesium (1.8-2.4) mg/dl C-Reactive Protein (<1.0) mg/dL Vitamin D 25-Hydroxy (30-100) ng/mL 10/16/17 10/16/17 Range/Units 06:49 06:49 WBC (4.23-9.07) K/mm3 RBC (4.63-6.08) M/mm3 Hgb (13.7-17.5) gm/L Hct (40.1-51.0) % MCV (79.0-92.2) fl MCH (25.7-32.2) pg MCHC (32.2-35.5) g/dl RDW Std Deviation (35.1-43.9) fL Plt Count (163-337) K/mm3 MPV (9.4-12.3) fl Neut % (Auto) (34.0-67.9) % Lymph % (Auto) (21.8-53.1) % [place] % (Auto) (5.3-12.2) % Eos % (Auto) (0.8-7.0) Baso % (Auto) (0.1-1.2) % Neut # (Auto) (1.78-5.38) K/mm3 Lymph # (Auto) (1.32-3.57) K/mm3 [place] # (Auto) (0.30-0.82) K/mm3 Eos # (Auto) (0.04-0.54) K/mm3 Baso # (Auto) (0.01-0.08) K/mm3 Manual Slide Review PT 28.8 H (9.5-12.1) SECONDS INR 2.69 Sodium 139 (136-145) mEq/L Potassium 4.3 (3.5-5.1) mEq/L Chloride 106 (98-107) mEq/L Carbon Dioxide 24 (21-32) mEq/L Anion Gap 13.3 (5-15) BUN 24 H (7-18) mg/dL Creatinine 1.3 (0.7-1.3) mg/dL Est Cr Clr Drug Dosing 45.34 mL/min Estimated GFR (MDRD) 54 (>60) mL/min BUN/Creatinine Ratio 18.5 H (14-18) Glucose 220 H (83-115) mg/dL POC Glucose (83-110) mg/dL Calcium 8.6 (8.5-10.1) mg/dL Magnesium 1.8 (1.8-2.4) mg/dl C-Reactive Protein 2.6 H* (<1.0) mg/dL Vitamin D 25-Hydroxy (30-100) ng/mL Obi Results Last 24 Hours: Microbiology 10/14/17 16:15 Urine Culture - Final Urine, Bladder MIXED KAI SUGGESTIVE OF CONTAMINATION. Med Orders - Current: Current Medications Acetaminophen (Tylenol) 650 mg PO Q4H PRN PRN Reason: Pain Hydrocodone Bitart/Acetaminophen ([place] 325-5 Mg) 1 tab PO Q4H PRN PRN Reason: Pain (moderate 4-6) Albuterol/Ipratropium (Duoneb 3.0-0.5 Mg/3 Ml) 3 ml NEB Q4H PRN PRN Reason: Shortness Of Breath/wheezing Allopurinol (Zyloprim) 100 mg PO DAILY [facility] Last Admin: 10/16/17 08:54 Dose: 100 mg Bisacodyl (Dulcolax) 5 mg PO DAILY PRN PRN Reason: Constipation Last Admin: 10/16/17 06:44 Dose: 5 mg Bisacodyl (Dulcolax) 10 mg RECTAL DAILY PRN PRN Reason: Constipation Carvedilol (Coreg) 3.125 mg PO BID [facility] Last Admin: 10/16/17 08:56 Dose: 3.125 mg Dexamethasone (Dexamethasone) 4 mg PO BID [facility] Stop: 10/16/17 21:01 Last Admin: 10/16/17 08:55 Dose: 4 mg Dextrose/Water (Dextrose 50% In Water) 50 ml IVPUSH ASDIRECTED PRN PRN Reason: Hypoglycemia Diltiazem HCl (Dilacor Xr) 240 mg PO Q48H [facility] Docusate Sodium (Colace) 100 mg PO DAILY [facility] Last Admin: 10/16/17 08:55 Dose: 100 mg Famotidine (Pepcid) 20 mg PO BID [facility] Last Admin: 10/16/17 08:55 Dose: 20 mg Ferrous Sulfate (Ferrous Sulfate) 325 mg PO BID [facility] Last Admin: 10/16/17 08:56 Dose: 325 mg Finasteride (Proscar) 5 mg PO DAILY [facility] Last Admin: 10/16/17 08:56 Dose: 5 mg Hydralazine HCl (Apresoline) 20 mg IVPUSH Q4H PRN PRN Reason: Hypertension Hydromorphone HCl (Dilaudid) 0.25 mg IVPUSH Q2H PRN PRN Reason: Pain (severe 7-10) Promethazine HCl 12.5 mg/ (Sodium Chloride) 50.5 mls @ 100 mls/hr IV Q6H PRN PRN Reason: Nausea/Vomiting Ceftriaxone Sodium 1 gm/ (Dextrose/Water) 100 mls @ 200 mls/hr IV Q24H [facility] Last Admin: 10/15/17 17:21 Dose: 200 mls/hr Ibuprofen (Motrin) 400 mg PO Q6H PRN PRN Reason: Pain (mild 1-3) Insulin Aspart (Novolog) 0 unit SUBCUT QIDACANDBED [facility]; Protocol Last Admin: 10/16/17 08:52 Dose: 4 units Insulin Detemir (Levemir) 25 unit SUBCUT BID [facility] Last Admin: 10/16/17 08:54 Dose: 25 units Lisinopril (Prinivil) 5 mg PO DAILY [facility] Last Admin: 10/16/17 08:55 Dose: 5 mg Lorazepam (Ativan) 2 mg IVPUSH Q4H PRN PRN Reason: Seizures Lorazepam (Ativan) 0.5 mg IV Q6H PRN PRN Reason: Anxiety Magnesium Hydroxide (Milk Of Magnesia) 30 ml PO Q12H PRN PRN Reason: Constipation Magnesium Sulfate (Pharmacy To Dose - Magnesium Replacement) 1 dose .XX ASDIRECTED [facility] Metoprolol Tartrate (Lopressor) 5 mg IVPUSH Q4H PRN PRN Reason: Tachycardia Naproxen (Naprosyn) 500 mg PO Q12HR [facility] Stop: 10/16/17 21:01 Last Admin: 10/16/17 08:55 Dose: 500 mg Ondansetron HCl (Zofran) 4 mg IV Q6H PRN PRN Reason: Nausea/Vomiting Polyethylene Glycol (Miralax) 17 gm PO DAILY PRN PRN Reason: Constipation Potassium Chloride (Pharmacy To Dose - Potassium Replacement) 1 dose .XX ASDIRECTED [facility] Rosuvastatin Calcium (Crestor) 20 mg PO DAILY [facility] Last Admin: 10/16/17 08:55 Dose: 20 mg Senna/Docusate Sodium (Senna Plus) 1 tab PO BID PRN PRN Reason: Constipation Sertraline HCl (Zoloft) 100 mg PO BEDTIME [facility] Last Admin: 10/15/17 21:09 Dose: 100 mg Sodium Chloride (Saline Flush) 10 ml FLUSH ASDIRECTED PRN PRN Reason: Keep Vein Open Last Admin: 10/14/17 16:27 Dose: 10 ml Temazepam (Restoril) 7.5 mg PO BEDTIME PRN PRN Reason: Sleep Tiotropium [place] (Spiriva Handihaler) 18 mcg INH DAILY [facility] Last Admin: 10/16/17 08:41 Dose: 1 cap Warfarin Sodium (Coumadin) 2.5 mg PO SuTuWeThSa@0900 [facility] Last Admin: 10/16/17 08:56 Dose: 2.5 mg Warfarin Sodium (Coumadin) 5 mg PO MoFr@0900 [facility] Discontinued Medications Carvedilol (Coreg) 3.125 mg PO BID [facility] Last Admin: 10/15/17 10:40 Dose: 3.125 mg Diltiazem HCl (Dilacor Xr) 240 mg PO Q48H [facility] Last Admin: 10/15/17 10:33 Dose: 240 mg Finasteride (Proscar) 5 mg PO DAILY [facility] Last Admin: 10/15/17 10:37 Dose: 5 mg Ceftriaxone Sodium 2 gm/ (Sodium Chloride) 100 mls @ 100 mls/hr IV ONETIME ONE Stop: 10/14/17 18:29 Last Admin: 10/14/17 18:00 Dose: 100 mls/hr Sodium Chloride (Normal Saline) 1,000 mls @ 75 mls/hr IV ASDIRECTED [facility] Last Admin: 10/14/17 23:11 Dose: 75 mls/hr Ceftriaxone Sodium 1 gm/ (Sodium Chloride) 100 mls @ 200 mls/hr IV Q24H [facility] Lisinopril (Prinivil) 5 mg PO DAILY [facility] Last Admin: 10/15/17 10:32 Dose: 5 mg Magnesium Oxide (Magnesium Oxide) 800 mg PO ONETIME ONE Stop: 10/15/17 09:01 Last Admin: 10/15/17 08:57 Dose: 800 mg Non-Formulary Medication (Alendronate Sodium) 70 mg PO DAILY [facility] Non-Formulary Medication (Insulin Aspart [Novolog]) 4 units SUBCUT BID [facility] Atorvastatin 80 Mg 0 each PO BEDTIME [facility] Last Admin: 10/15/17 11:10 Dose: Not Given Insulin Glarg,Human. Rec.Analog 10 Ml Vial 0 each SUBCUT DAILY [facility] Last Admin: 10/15/17 10:52 Dose: 1 each Sertraline 100 Mg 0 each PO BEDTIME [facility] Last Admin: 10/15/17 11:10 Dose: Not Given Insulin Aspart 100 (Units/Ml 10 Ml Vial) 0 each SUBCUT QIDACANDBED [facility]; Protocol Last Admin: 10/15/17 10:57 Dose: Not Given Tiotropium [place] (Spiriva Handihaler) 18 mcg INH DAILY [facility] Last Admin: 10/15/17 11:26 Dose: 1 cap Warfarin Sodium (Coumadin) 5 mg PO MoFr@0900 [facility] Warfarin Sodium (Coumadin) 2.5 mg PO SuTuWeThSa@0900 [facility] - Exam Quality Assessment: DVT Prophylaxis General: Alert, Oriented, Cooperative, No Acute Distress HEENT: Pupils Equal, Pupils Reactive, EOMI, Mucous Membr. Moist/[place] Neck: Supple Lungs: Clear to Auscultation, Normal Respiratory Effort Cardiovascular: Regular Rate, Regular Rhythm GI/Abdominal Exam: Normal Bowel Sounds, Soft, Non-Tender, No Organomegaly, No Distention, No Abnormal Bruit, No Mass, Pelvis Stable (Male) Exam: Deferred Back Exam: Normal Inspection, Full Range of Motion Extremities: Normal Inspection, Normal Range of Motion, Non-Tender, No Pedal Edema, Normal Capillary Refill Peripheral Pulses: 2+: Radial (L), Radial (R), Posterior Tibial (L), Posterior Tibial (R), Dorsalis Pedis (L), Dorsalis Pedis (R) Skin: Warm, Dry, Intact Wound/Incisions: Dressing Dry and Intact, No Drainage. No: Erythema Neurological: No New Focal Deficit. No: Normal Gait, Normal Speech, Strength Equal Bilateral, Sensation Intact Psy/Mental Status: Alert, Normal Affect, Normal Mood - Problem List & Annotations (1) Contusion of left knee SNOMED Code(s): 27195177 Code(s): S80.02XA - CONTUSION OF LEFT KNEE, INITIAL ENCOUNTER Status: Acute Priority: High Current Visit: Yes Qualifiers: Encounter type: initial encounter Qualified Code(s): S80.02XA - Contusion of left knee, initial encounter (2) Effusion, left knee SNOMED Code(s): 260290782 Code(s): M25.462 - EFFUSION, LEFT KNEE Status: Acute Priority: High Current Visit: Yes (3) Fall SNOMED Code(s): 9066145, 461391187 Code(s): W19.XXXA - UNSPECIFIED FALL, INITIAL ENCOUNTER Status: Acute Priority: High Current Visit: Yes Qualifiers: Encounter type: initial encounter Qualified Code(s): W19.XXXA - Unspecified fall, initial encounter - Problem List Review Problem List Initiated/Reviewed/Updated: Yes - Plan Plan:: Assessment/Plan: Acute: Left Knee Contusion Pain S/p Fall - Looks much better this AM - DDx: Inflammatory OA vs Acute Gout - No obvious skin break or lesion - Risk Factor: Right sided residual weakness from hx/o CVA and Gait Instability - Has lower extremity brace orthosis - X-ray/CT scan reports read joint effusion and and diffuse subcutaneous edema. Osteoporosis. No acute bony abnormality is appreciated - Continue Naproxern 500 mg po BID and Dexamethasone 4 mg po BID x 4 doses only first dose in AM for anti-inflammation and edema - Continue PT/OT - Consider joint knee aspiration AM per patient request Mild Hypomagnesemia, improving - Mg 1.7 -->1.8 - 2/2 inadequate intake - Replete and monitor S/P left knee aspiration -19mL of bloody fluid removed -Reports improved mobility and pain -Lab analysis pending Resolved: UTI - Culture suggests contamination - no UTI - Risk Factor: BPH, Recurrent UTI, Possible Neurogenic Bladder and Poor Hygiene (smell foul urine) - Recently hospitalized in [place] for similar episode - UA pos- awaiting Cx ?? 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
--- NOTE | 2017-10-16 11:59 | PCM.PRNOTE ---
- Free Text/Narrative Note: DATE OF PROCEDURE: 10/16/2017 PREOPERATIVE DIAGNOSIS: Left Knee Joint Effusion POSTOPERATIVE DIAGNOSIS: Left Knee Joint Effusion PROCEDURE PERFORMED: Diagnostic and Therapeutic Joint Aspiration SURGEON: Manny Hairston PA-C and Charis Mathews PA-c MACHINERY RIGGER: Emmanuel Zee DO PROCEDURE: Consent for Arthrocentesis: Risks and benefits discussed with patient and verbal consent obtained. The L Knee was prepped. 10 cc of Lidocaine was administered for anesthesia. The site was marked and prepared in sterile fashion. Wheel of lidocaine placed. Lidocaine then introduced into the joint space. Fluid was removed from the joint space. Samples were sent to the lab for analysis. About 19 cc of hemorrhagic fluid removed Estimated Blood Loss: minimal Complications: The patient tolerated the procedure well without complications.
[2017-10-16] MEDS ORDERED: Benzocaine 20% Oral Spray 59.2 ML Canister MUCMEM ONE (12:27)
[2017-10-16] MEDS ORDERED: Lidocaine 1% 50 ML MDV INJECT ONE (12:30)
[2017-10-16] MEDS: Sertraline 50 MG Tab PO SCH (21:42)
[2017-10-17 04:43] VITALS: BP 122/95
[2017-10-17] MEDS ORDERED: Pneumococcal 13-Valent Conjugate Vaccine 0.5 ML Syringe IM ONE (05:59)
--- NOTE | 2017-10-17 06:32 | PCM.DCSUM1 ---
Discharge Summary - Hospital Course HPI Initial Comments: This is 72 yo elderly white male with past medical hx/o Cardiac Dysrhythmia/ Atrial Arrhythmia, on Warfarin, HLD, DM2, BPH, MIKIE, Pulmonary Insufficiency/RAD, Osteoporosis, Gout, Hx/o MRSA, Depression, H/o CVA with Residual Right Sided Weakness and Recurrent UTI who comes in for evaluation of left knee pain after a recent fall coming down from stairs that took place yesterday at home. He carries a history of CVA with left-sided weakness. His chief of complaint is associated with moderate pain and edema. He denies hitting his head and no loss of consciousness. He further denies any bladder or bowel incontinence. Patient carries a history of recurrent UTI. He was just discharged from [facility] for a bad case of UTI. Patient is able to walk with a walker. However, according to him after he took a tumble, he had difficulty ambulating and so he presented to emergency department for further evaluation. His initial workup in ED shows a CBC remarkable for WBC of 11.37, hemoglobin of 13, hematocrit of 39.5, RDW of 45.4, neutrophils of 72.7%, and lymphocytes of 14.7%. His coagulation study are PT of 31.4% and INR of 2.94. His chemistry is remarkable for CRP of 4 and albumin of 2.7. His UA is significantly impressive for urinary tract infection. X-ray and CT scan of his knee report reads joint effusion, diffuse subcutaneous edema, osteoporosis, no acute bony abnormalities appreciated. She is being admitted for recurrent UTI and left knee contusion. He is CPR only. - Discharge Data Discharge Date: 10/17/17 (Admit date: 10/14/17) Discharge Disposition: DC/Tfer to SNF 03 Condition: Good - Discharge Diagnosis/Problem(s) (1) Contusion of left knee SNOMED Code(s): 63349772 ICD Code: S80.02XA - CONTUSION OF LEFT KNEE, INITIAL ENCOUNTER Status: Acute Priority: High Current Visit: Yes Qualifiers: Encounter type: initial encounter Qualified Code(s): S80.02XA - Contusion of left knee, initial encounter (2) Effusion, left knee SNOMED Code(s): 294977027 ICD Code: M25.462 - EFFUSION, LEFT KNEE Status: Acute Priority: High Current Visit: Yes (3) Fall SNOMED Code(s): 2002563, 957212823 ICD Code: W19.XXXA - UNSPECIFIED FALL, INITIAL ENCOUNTER Status: Acute Priority: High Current Visit: Yes Qualifiers: Encounter type: initial encounter Qualified Code(s): W19.XXXA - Unspecified fall, initial encounter - Patient Summary/Data Consults: Consultations 10/14/17 20:42 Consult to Case Management [CONS] Routine Consult to Supervisor Safety Deposit [CONS] Routine Consult to Spiritual Care [CONS] Routine OT Evaluation and Treatment [CONS] Routine PT Evaluation and Treatment [CONS] Routine 10/15/17 14:25 Consult to Speech Language Pathology [[employer] PROFESSOR Evaluation and Treatment] [CONS] Routine Labs Pending at D/C: None Recommended Follow-up Testing/Procedures: PT/OT to evaluate and treat Recommend follow-up with PCP within 7-10 days. Recommend re-check INR early next week Hospital Course: Assessment/Plan: Acute: Left Knee Contusion Pain S/p Fall - Looks much better this AM-> continues to look good - DDx: Inflammatory OA vs Acute Gout - Uric acid WNL - No obvious skin break or lesion - Risk Factor: Right sided residual weakness from hx/o CVA and Gait Instability - Has lower extremity brace orthosis - X-ray/CT scan reports read joint effusion and and diffuse subcutaneous edema. Osteoporosis. No acute bony abnormality is appreciated - Continue Naproxern 500 mg po BID and Dexamethasone 4 mg po BID x 4 doses only first dose in AM for anti-inflammation and edema -> dosing finished - Continue PT/OT - Joint knee aspiration on 10/16/17 per patient request S/P left knee aspiration on 10/16/17 -19mL of bloody fluid removed -Reports improved mobility and pain -Lab analysis shows elevated WBCs and segmented neutrophils Resolved: UTI - Culture suggests contamination - no UTI - Risk Factor: BPH, Recurrent UTI, Possible Neurogenic Bladder and Poor Hygiene (smell foul urine) - Recently hospitalized in [place] for similar episode - UA pos - Continue IV Rocephin 1 gm daily and Proscar 5 mg po daily--> Stop Rocephin - Good hygiene habits Mild Hypomagnesemia, Resolved - Mg 1.7 -->1.8-->2.0 - 2/2 inadequate intake - Replete and monitor Chronic: Cardiac Dysrhythmia/Atrial Arrythmia, on Warfarin HLD DM2, A1C 6.10 BPH MIKIE Pulmonary Insufficiency/RAD Osteoporosis Gout Hx/o MRSA Depression H/o CVA with Residual Right Sided Weakness Plan: He is clinically stable Routine AM Labs Vit D/TFT both within normal limits Accu-check with ISS QID AC/HS SW/CM for d/c planning Code Status: CPR only D/c pending SNF placement 10/17/17 Overall Frank did quite well. He continued to complain of left knee pain and requested a joint aspiration. 19mL of bloody fluid was obtained. Knee remains soft with no overlying signs of infection of surrounding tissues. He has no knee pain now. His UA was suggestive of a UTI and his reports he recently had a rather severe UTI however, the culture was only suggestive of contamination. He remains somewhat weak and PT/OT has been working with him. This should be continued at [facility]. His warfarin dosing was adjusted prior to discharge and INR should be re-checked early next week. His magnesium has been low but returned to WNL prior to discharge. He will be discharged today to the [facility] SNF. He should follow-up with his PCP within 7-10 days, sooner if needed. - Patient Instructions Diet: Diabetic Diet Activity: As Tolerated Driving: Do Not Drive Notify Provider of: Fever, Increased Pain, Nausea and/or Vomiting - Discharge Plan Prescriptions/Med Rec: Warfarin [Coumadin] 2.5 mg PO SuTuWeThSa@0900 #1 tablet Warfarin [Coumadin] 5 mg PO MoFr@0900 #30 tablet Home Medications: Home Meds Acetaminophen [Tylenol Arthritis] 650 mg PO Q4H PRN 10/14/17 [History] Alendronate Sodium [Fosamax] 70 mg PO DAILY 10/14/17 [History] Allopurinol [Zyloprim] 100 mg PO DAILY 10/14/17 [History] Bisacodyl [Dulcolax] 1 supp RECTAL DAILY PRN 10/14/17 [History] Carvedilol [Coreg] 3.125 mg PO BID 10/14/17 [History] Diltiazem HCl [Cardizem Cd] 240 mg PO Q48H 10/14/17 [History] Docusate Sodium [Colace] 100 mg PO DAILY 10/14/17 [History] Ferrous Sulfate 325 mg PO BID 10/14/17 [History] Finasteride [Proscar] 5 mg PO DAILY 10/14/17 [History] Insulin Aspart [NovoLOG] 4 units SUBCUT BID 10/14/17 [History] Insulin Glarg,Human.Rec.Analog [Lantus] 50 units SUBCUT DAILY 10/14/17 [History] Lisinopril 5 mg PO DAILY 10/14/17 [History] Sertraline [Zoloft] 100 mg PO BEDTIME 10/14/17 [History] Tiotropium [Spiriva HandiHaler] 1 inh PO DAILY 10/14/17 [History] atorvaSTATin [Lipitor] 40 mg PO BEDTIME 10/14/17 [History] Warfarin [Coumadin] 2.5 mg PO SuTuWeThSa@0900 #1 tablet 10/17/17 [Rx] Warfarin [Coumadin] 5 mg PO MoFr@0900 #30 tablet 10/17/17 [Rx] Referrals: Vincenzo Shen MD [Ordering Only Provider] - Latrell Coleman MD [Primary Care Provider] - - Discharge Summary/Plan Comment DC Time >30 min.: Yes (45 mins ) - General Info Date of Service: 10/17/17 Admission Dx/Problem (Free Text: Admission Diagnosis/Problem Admission Diagnosis/Problem UTI, Urinary tract infectious disease Subjective Update: In to see Frank. He is lying in bed. He has no concerns. He looks good and feels good. Nursing has no concerns. He will be discharged to [facility] today. Functional Status: Reports: Pain Controlled, Tolerating Diet, Ambulating, Urinating. Denies: New Symptoms - Review of Systems General: Reports: Weakness (improved ). Denies: Fever, Fatigue, Malaise, Chills HEENT: Reports: No Symptoms Pulmonary: Reports: No Symptoms. Denies: Shortness of Breath, Cough, Sputum, Wheezing Cardiovascular: Reports: Dyspnea on Exertion (baseline ). Denies: Chest Pain, Palpitations, Edema Gastrointestinal: Reports: No Symptoms. Denies: Abdominal Pain, Constipation, Diarrhea, Nausea, Vomiting Genitourinary: Reports: No Symptoms Musculoskeletal: Reports: No Symptoms. Denies: Arm Pain, Leg Pain, Joint Pain Skin: Reports: No Symptoms Neurological: Reports: Pre-Existing Deficit, Trouble Speaking (baseline ), Difficulty Walking (baseline ), Weakness (baseline ), Change in Speech, Gait Disturbance. Denies: Confusion, Dizziness Psychiatric: Reports: No Symptoms - Patient Data Vitals - Most Recent: Last Vital Signs Temp 97.9 F 10/17/17 03:43 Pulse 65 10/17/17 03:43 Resp 22 H 10/17/17 03:43 BP 122/95 H 10/17/17 03:43 Pulse Ox 94 L 10/17/17 03:43 Weight - Most Recent: 206 lb 12.8 oz I&O - Last 24 hours: Intake & Output 10/16/17 10/16/17 10/17/17 14:59 22:59 06:59 Intake Total 360 720 360 Output Total 300 Balance 360 420 360 Lab Results - Last 24 hrs: Laboratory Results - last 24 hr 10/14/17 10/16/17 10/16/17 Range/Units 16:15 06:47 06:49 WBC 9.61 H (4.23-9.07) K/mm3 RBC 4.59 L (4.63-6.08) M/mm3 Hgb 12.2 L (13.7-17.5) gm/L Hct 36.8 L (40.1-51.0) % MCV 80.2 (79.0-92.2) fl MCH 26.6 (25.7-32.2) pg MCHC 33.2 (32.2-35.5) g/dl RDW Std Deviation 43.2 (35.1-43.9) fL Plt Count 172 (163-337) K/mm3 MPV 10.5 (9.4-12.3) fl Neut % (Auto) 87.4 H (34.0-67.9) % Lymph % (Auto) 8.6 L (21.8-53.1) % Briscoe % (Auto) 3.9 L (5.3-12.2) % Eos % (Auto) 0 L (0.8-7.0) Baso % (Auto) 0.0 L (0.1-1.2) % Neut # (Auto) 8.40 H (1.78-5.38) K/mm3 Lymph # (Auto) 0.83 L (1.32-3.57) K/mm3 Briscoe # (Auto) 0.37 (0.30-0.82) K/mm3 Eos # (Auto) 0.00 L (0.04-0.54) K/mm3 Baso # (Auto) 0.00 L (0.01-0.08) K/mm3 Manual Slide Review Abnormal smear PT (9.5-12.1) SECONDS INR Sodium (136-145) mEq/L Potassium (3.5-5.1) mEq/L Chloride (98-107) mEq/L Carbon Dioxide (21-32) mEq/L Anion Gap (5-15) BUN (7-18) mg/dL Creatinine (0.7-1.3) mg/dL Est Cr Clr Drug Dosing mL/min Estimated GFR (MDRD) (>60) mL/min BUN/Creatinine Ratio (14-18) Glucose (83-115) mg/dL POC Glucose 226 H (83-110) mg/dL Calcium (8.5-10.1) mg/dL Magnesium (1.8-2.4) mg/dl C-Reactive Protein (<1.0) mg/dL Ur Uric Acid Concent 60.2 mg/dL Body Fluid Site Fluid Volume ML Fluid Color Fluid Appearance Fluid WBC (0.20-0.60) k/mm*3 Fluid RBC (0.00-0.010) 10*6/uL Fluid Diff Comment Fluid Seg Neutrophils (0-25) % Fluid Lymphocytes (0-78) % Fluid Monocytes (0-71) % Fluid Macrophages Fld Meso/Macro/Monocyte Fluid Crystals 10/16/17 10/16/17 10/16/17 Range/Units 06:49 06:49 11:52 WBC (4.23-9.07) K/mm3 RBC (4.63-6.08) M/mm3 Hgb (13.7-17.5) gm/L Hct (40.1-51.0) % MCV (79.0-92.2) fl MCH (25.7-32.2) pg MCHC (32.2-35.5) g/dl RDW Std Deviation (35.1-43.9) fL Plt Count (163-337) K/mm3 MPV (9.4-12.3) fl Neut % (Auto) (34.0-67.9) % Lymph % (Auto) (21.8-53.1) % Briscoe % (Auto) (5.3-12.2) % Eos % (Auto) (0.8-7.0) Baso % (Auto) (0.1-1.2) % Neut # (Auto) (1.78-5.38) K/mm3 Lymph # (Auto) (1.32-3.57) K/mm3 Briscoe # (Auto) (0.30-0.82) K/mm3 Eos # (Auto) (0.04-0.54) K/mm3 Baso # (Auto) (0.01-0.08) K/mm3 Manual Slide Review PT 28.8 H (9.5-12.1) SECONDS INR 2.69 Sodium 139 (136-145) mEq/L Potassium 4.3 (3.5-5.1) mEq/L Chloride 106 (98-107) mEq/L Carbon Dioxide 24 (21-32) mEq/L Anion Gap 13.3 (5-15) BUN 24 H (7-18) mg/dL Creatinine 1.3 (0.7-1.3) mg/dL Est Cr Clr Drug Dosing 45.34 mL/min Estimated GFR (MDRD) 54 (>60) mL/min BUN/Creatinine Ratio 18.5 H (14-18) Glucose 220 H (83-115) mg/dL POC Glucose 248 H (83-110) mg/dL Calcium 8.6 (8.5-10.1) mg/dL Magnesium 1.8 (1.8-2.4) mg/dl C-Reactive Protein 2.6 H* (<1.0) mg/dL Ur Uric Acid Concent mg/dL Body Fluid Site Fluid Volume ML Fluid Color Fluid Appearance Fluid WBC (0.20-0.60) k/mm*3 Fluid RBC (0.00-0.010) 10*6/uL Fluid Diff Comment Fluid Seg Neutrophils (0-25) % Fluid Lymphocytes (0-78) % Fluid Monocytes (0-71) % Fluid Macrophages Fld Meso/Macro/Monocyte Fluid Crystals 10/16/17 10/16/17 10/16/17 Range/Units 13:00 16:24 21:45 WBC (4.23-9.07) K/mm3 RBC (4.63-6.08) M/mm3 Hgb (13.7-17.5) gm/L Hct (40.1-51.0) % MCV (79.0-92.2) fl MCH (25.7-32.2) pg MCHC (32.2-35.5) g/dl RDW Std Deviation (35.1-43.9) fL Plt Count (163-337) K/mm3 MPV (9.4-12.3) fl Neut % (Auto) (34.0-67.9) % Lymph % (Auto) (21.8-53.1) % Briscoe % (Auto) (5.3-12.2) % Eos % (Auto) (0.8-7.0) Baso % (Auto) (0.1-1.2) % Neut # (Auto) (1.78-5.38) K/mm3 Lymph # (Auto) (1.32-3.57) K/mm3 Briscoe # (Auto) (0.30-0.82) K/mm3 Eos # (Auto) (0.04-0.54) K/mm3 Baso # (Auto) (0.01-0.08) K/mm3 Manual Slide Review PT (9.5-12.1) SECONDS INR Sodium (136-145) mEq/L Potassium (3.5-5.1) mEq/L Chloride (98-107) mEq/L Carbon Dioxide (21-32) mEq/L Anion Gap (5-15) BUN (7-18) mg/dL Creatinine (0.7-1.3) mg/dL Est Cr Clr Drug Dosing mL/min Estimated GFR (MDRD) (>60) mL/min BUN/Creatinine Ratio (14-18) Glucose (83-115) mg/dL POC Glucose 205 H 178 H (83-110) mg/dL Calcium (8.5-10.1) mg/dL Magnesium (1.8-2.4) mg/dl C-Reactive Protein (<1.0) mg/dL Ur Uric Acid Concent mg/dL Body Fluid Site Left knee Fluid Volume 9 ML Fluid Color Red Fluid Appearance Bloody Fluid WBC 4.24 H (0.20-0.60) k/mm*3 Fluid RBC (0.00-0.010) 10*6/uL Fluid Diff Comment TNP Fluid Seg Neutrophils 48.0 H (0-25) % Fluid Lymphocytes 50.0 (0-78) % Fluid Monocytes 0.0 (0-71) % Fluid Macrophages 2 Fld Meso/Macro/Monocyte 0 Fluid Crystals Cancelled 10/17/17 10/17/17 10/17/17 Range/Units 04:22 04:22 04:22 WBC 11.63 H (4.23-9.07) K/mm3 RBC 4.55 L (4.63-6.08) M/mm3 Hgb 12.1 L (13.7-17.5) gm/L Hct 36.4 L (40.1-51.0) % MCV 80.0 (79.0-92.2) fl MCH 26.6 (25.7-32.2) pg MCHC 33.2 (32.2-35.5) g/dl RDW Std Deviation 44.5 H (35.1-43.9) fL Plt Count 190 (163-337) K/mm3 MPV 10.3 (9.4-12.3) fl Neut % (Auto) 88.9 H (34.0-67.9) % Lymph % (Auto) 7.7 L (21.8-53.1) % Briscoe % (Auto) 3.1 L (5.3-12.2) % Eos % (Auto) 0 L (0.8-7.0) Baso % (Auto) 0.0 L (0.1-1.2) % Neut # (Auto) 10.34 H (1.78-5.38) K/mm3 Lymph # (Auto) 0.90 L (1.32-3.57) K/mm3 Briscoe # (Auto) 0.36 (0.30-0.82) K/mm3 Eos # (Auto) 0.00 L (0.04-0.54) K/mm3 Baso # (Auto) 0.00 L (0.01-0.08) K/mm3 Manual Slide Review Abnormal smear PT 25.6 H (9.5-12.1) SECONDS INR 2.39 Sodium 141 (136-145) mEq/L Potassium 4.4 (3.5-5.1) mEq/L Chloride 107 (98-107) mEq/L Carbon Dioxide 24 (21-32) mEq/L Anion Gap 14.4 (5-15) BUN 31 H (7-18) mg/dL Creatinine 1.2 (0.7-1.3) mg/dL Est Cr Clr Drug Dosing 49.11 mL/min Estimated GFR (MDRD) 60 (>60) mL/min BUN/Creatinine Ratio 25.8 H (14-18) Glucose 208 H (83-115) mg/dL POC Glucose (83-110) mg/dL Calcium 9.0 (8.5-10.1) mg/dL Magnesium 2.0 (1.8-2.4) mg/dl C-Reactive Protein 1.2 H* (<1.0) mg/dL Ur Uric Acid Concent mg/dL Body Fluid Site Fluid Volume ML Fluid Color Fluid Appearance Fluid WBC (0.20-0.60) k/mm*3 Fluid RBC (0.00-0.010) 10*6/uL Fluid Diff Comment Fluid Seg Neutrophils (0-25) % Fluid Lymphocytes (0-78) % Fluid Monocytes (0-71) % Fluid Macrophages Fld Meso/Macro/Monocyte Fluid Crystals /1818 Range/Units 05:53 WBC (4.23-9.07) K/mm3 RBC (4.63-6.08) M/mm3 Hgb (13.7-17.5) gm/L Hct (40.1-51.0) % MCV (79.0-92.2) fl MCH (25.7-32.2) pg MCHC (32.2-35.5) g/dl RDW Std Deviation (35.1-43.9) fL Plt Count (163-337) K/mm3 MPV (9.4-12.3) fl Neut % (Auto) (34.0-67.9) % Lymph % (Auto) (21.8-53.1) % Briscoe % (Auto) (5.3-12.2) % Eos % (Auto) (0.8-7.0) Baso % (Auto) (0.1-1.2) % Neut # (Auto) (1.78-5.38) K/mm3 Lymph # (Auto) (1.32-3.57) K/mm3 Briscoe # (Auto) (0.30-0.82) K/mm3 Eos # (Auto) (0.04-0.54) K/mm3 Baso # (Auto) (0.01-0.08) K/mm3 Manual Slide Review PT (9.5-12.1) SECONDS INR Sodium (136-145) mEq/L Potassium (3.5-5.1) mEq/L Chloride (98-107) mEq/L Carbon Dioxide (21-32) mEq/L Anion Gap (5-15) BUN (7-18) mg/dL Creatinine (0.7-1.3) mg/dL Est Cr Clr Drug Dosing mL/min Estimated GFR (MDRD) (>60) mL/min BUN/Creatinine Ratio (14-18) Glucose (83-115) mg/dL POC Glucose 185 H (83-110) mg/dL Calcium (8.5-10.1) mg/dL Magnesium (1.8-2.4) mg/dl C-Reactive Protein (<1.0) mg/dL Ur Uric Acid Concent mg/dL Body Fluid Site Fluid Volume ML Fluid Color Fluid Appearance Fluid WBC (0.20-0.60) k/mm*3 Fluid RBC (0.00-0.010) 10*6/uL Fluid Diff Comment Fluid Seg Neutrophils (0-25) % Fluid Lymphocytes (0-78) % Fluid Monocytes (0-71) % Fluid Macrophages Fld Meso/Macro/Monocyte Fluid Crystals GIRMA Results - Last 24 hrs: Microbiology 10/14/17 16:15 Urine Culture - Final Urine, Bladder MIXED KAI SUGGESTIVE OF CONTAMINATION. Med Orders - Current: Current Medications Acetaminophen (Tylenol) 650 mg PO Q4H PRN PRN Reason: Pain Hydrocodone Bitart/Acetaminophen (Mystic 325-5 Mg) 1 tab PO Q4H PRN PRN Reason: Pain (moderate 4-6) Albuterol/Ipratropium (Duoneb 3.0-0.5 Mg/3 Ml) 3 ml NEB Q4H PRN PRN Reason: Shortness Of Breath/wheezing Allopurinol (Zyloprim) 100 mg PO DAILY CHARITO Last Admin: 10/16/17 08:54 Dose: 100 mg Bisacodyl (Dulcolax) 5 mg PO DAILY PRN PRN Reason: Constipation Last Admin: 10/16/17 06:44 Dose: 5 mg Bisacodyl (Dulcolax) 10 mg RECTAL DAILY PRN PRN Reason: Constipation Carvedilol (Coreg) 3.125 mg PO BID [facility] Last Admin: 10/16/17 21:33 Dose: 3.125 mg Dextrose/Water (Dextrose 50% In Water) 50 ml IVPUSH ASDIRECTED PRN PRN Reason: Hypoglycemia Diltiazem HCl (Dilacor Xr) 240 mg PO Q48H [facility] Docusate Sodium (Colace) 100 mg PO DAILY [facility] Last Admin: 10/16/17 08:55 Dose: 100 mg Famotidine (Pepcid) 20 mg PO BID [facility] Last Admin: 10/16/17 21:31 Dose: 20 mg Ferrous Sulfate (Ferrous Sulfate) 325 mg PO BID [facility] Last Admin: 10/16/17 21:40 Dose: 325 mg Finasteride (Proscar) 5 mg PO DAILY [facility] Last Admin: 10/16/17 08:56 Dose: 5 mg Hydralazine HCl (Apresoline) 20 mg IVPUSH Q4H PRN PRN Reason: Hypertension Last Admin: 10/17/17 01:09 Dose: 20 mg Hydromorphone HCl (Dilaudid) 0.25 mg IVPUSH Q2H PRN PRN Reason: Pain (severe 7-10) Promethazine HCl 12.5 mg/ (Sodium Chloride) 50.5 mls @ 100 mls/hr IV Q6H PRN PRN Reason: Nausea/Vomiting Ibuprofen (Motrin) 400 mg PO Q6H PRN PRN Reason: Pain (mild 1-3) Insulin Aspart (Novolog) 0 unit SUBCUT QIDACANDBED [facility]; Protocol Last Admin: 10/16/17 21:50 Dose: 2 units Insulin Detemir (Levemir) 25 unit SUBCUT BID [facility] Last Admin: 10/16/17 21:51 Dose: 25 units Lisinopril (Prinivil) 5 mg PO DAILY [facility] Last Admin: 10/16/17 08:55 Dose: 5 mg Lorazepam (Ativan) 2 mg IVPUSH Q4H PRN PRN Reason: Seizures Lorazepam (Ativan) 0.5 mg IV Q6H PRN PRN Reason: Anxiety Magnesium Hydroxide (Milk Of Magnesia) 30 ml PO Q12H PRN PRN Reason: Constipation Magnesium Sulfate (Pharmacy To Dose - Magnesium Replacement) 1 dose .XX ASDIRECTED [facility] Metoprolol Tartrate (Lopressor) 5 mg IVPUSH Q4H PRN PRN Reason: Tachycardia Ondansetron HCl (Zofran) 4 mg IV Q6H PRN PRN Reason: Nausea/Vomiting Polyethylene Glycol (Miralax) 17 gm PO DAILY PRN PRN Reason: Constipation Potassium Chloride (Pharmacy To Dose - Potassium Replacement) 1 dose .XX ASDIRECTED [facility] Rosuvastatin Calcium (Crestor) 20 mg PO DAILY [facility] Last Admin: 10/16/17 08:55 Dose: 20 mg Senna/Docusate Sodium (Senna Plus) 1 tab PO BID PRN PRN Reason: Constipation Sertraline HCl (Zoloft) 100 mg PO BEDTIME [facility] Last Admin: 10/16/17 21:42 Dose: 100 mg Sodium Chloride (Saline Flush) 10 ml FLUSH ASDIRECTED PRN PRN Reason: Keep Vein Open Last Admin: 10/14/17 16:27 Dose: 10 ml Temazepam (Restoril) 7.5 mg PO BEDTIME PRN PRN Reason: Sleep Tiotropium Stanton (Spiriva Handihaler) 18 mcg INH DAILY [facility] Last Admin: 10/16/17 08:41 Dose: 1 cap Warfarin Sodium (Coumadin) 2.5 mg PO SuTuWeThSa@0900 [facility] Last Admin: 10/16/17 08:56 Dose: 2.5 mg Warfarin Sodium (Coumadin) 5 mg PO MoFr@0900 [facility] Discontinued Medications Benzocaine (Hurricaine 20% [place]) 0 ml MUCMEM ONETIME ONE Stop: 10/16/17 12:28 Last Admin: 10/16/17 13:18 Dose: Not Given Carvedilol (Coreg) 3.125 mg PO BID [facility] Last Admin: 10/15/17 10:40 Dose: 3.125 mg Dexamethasone (Dexamethasone) 4 mg PO BID [facility] Stop: 10/16/17 21:01 Last Admin: 10/16/17 21:29 Dose: 4 mg Diltiazem HCl (Dilacor Xr) 240 mg PO Q48H [facility] Last Admin: 10/15/17 10:33 Dose: 240 mg Finasteride (Proscar) 5 mg PO DAILY [facility] Last Admin: 10/15/17 10:37 Dose: 5 mg Ceftriaxone Sodium 2 gm/ (Sodium Chloride) 100 mls @ 100 mls/hr IV ONETIME ONE Stop: 10/14/17 18:29 Last Admin: 10/14/17 18:00 Dose: 100 mls/hr Sodium Chloride (Normal Saline) 1,000 mls @ 75 mls/hr IV ASDIRECTED [facility] Last Admin: 10/14/17 23:11 Dose: 75 mls/hr Ceftriaxone Sodium 1 gm/ (Sodium Chloride) 100 mls @ 200 mls/hr IV Q24H [facility] Ceftriaxone Sodium 1 gm/ (Dextrose/Water) 100 mls @ 200 mls/hr IV Q24H [facility] Last Admin: 10/15/17 17:21 Dose: 200 mls/hr Lidocaine HCl (Xylocaine 1%) 20 ml INJECT ONETIME ONE Stop: 10/16/17 12:31 Last Admin: 10/16/17 13:18 Dose: 20 ml Lisinopril (Prinivil) 5 mg PO DAILY [facility] Last Admin: 10/15/17 10:32 Dose: 5 mg Magnesium Oxide (Magnesium Oxide) 800 mg PO ONETIME ONE Stop: 10/15/17 09:01 Last Admin: 10/15/17 08:57 Dose: 800 mg Naproxen (Naprosyn) 500 mg PO Q12HR [facility] Stop: 10/16/17 21:01 Last Admin: 10/16/17 21:32 Dose: 500 mg Non-Formulary Medication (Alendronate Sodium) 70 mg PO DAILY [facility] Non-Formulary Medication (Insulin Aspart [Novolog]) 4 units SUBCUT BID [facility] Atorvastatin 80 Mg 0 each PO BEDTIME [facility] Last Admin: 10/15/17 11:10 Dose: Not Given Insulin Glarg,Human. Rec.Analog 10 Ml Vial 0 each SUBCUT DAILY [facility] Last Admin: 10/15/17 10:52 Dose: 1 each Sertraline 100 Mg 0 each PO BEDTIME [facility] Last Admin: 10/15/17 11:10 Dose: Not Given Insulin Aspart 100 (Units/Ml 10 Ml Vial) 0 each SUBCUT QIDACANDBED [facility]; Protocol Last Admin: 10/15/17 10:57 Dose: Not Given Pneumococcal 13-Valent Conj Vacc (Prevnar 13) 0.5 ml IM .ONCE ONE Stop: 10/17/17 06:00 Tiotropium Stanton (Spiriva Handihaler) 18 mcg INH DAILY [facility] Last Admin: 10/15/17 11:26 Dose: 1 cap Warfarin Sodium (Coumadin) 5 mg PO MoFr@0900 [facility] Warfarin Sodium (Coumadin) 2.5 mg PO LesuWeTh@0900 [facility] - Exam Quality Assessment: Reports: DVT Prophylaxis General: Reports: Alert, Oriented, Cooperative, No Acute Distress HEENT: Reports: Pupils Equal, Pupils Reactive, EOMI, Mucous Membr. Moist/[place] Neck: Reports: Supple, Trachea Midline, No JVD Lungs: Reports: Clear to Auscultation, Normal Respiratory Effort, Decreased Breath Sounds Cardiovascular: Reports: Regular Rate, Regular Rhythm GI/Abdominal Exam: Normal Bowel Sounds, Soft, Non-Tender, No Organomegaly, No Distention, No Abnormal Bruit, No Mass, Pelvis Stable (Male) Exam: Deferred Rectal (Males) Exam: Deferred Back Exam: Reports: Normal Inspection, Full Range of Motion Extremities: Normal Inspection, Non-Tender, No Pedal Edema, Normal Capillary Refill, Joint Swelling (minimal left knee ), Limited Range of Motion. No: Leg Pain, Redness Skin: Reports: Warm, Dry, Intact Wound/Incisions: Reports: Dressing Dry and Intact, No Drainage Neurological: Reports: No New Focal Deficit, Sensation Intact. Denies: Normal Gait, Normal Speech, Strength Equal Bilateral, Reflexes Equal Bilateral Psy/Mental Status: Reports: Alert, Normal Affect, Normal Mood
[2017-10-17] MEDS: Insulin Aspart 100 Units/ML 3 ML Pen SUBCUT SCH (06:58)
[2017-10-17] MEDS ORDERED: WARFARIN 5 MG PO SCH ×2 (09:00)
[2017-10-17] MEDS ORDERED: Diltiazem 240 MG Cap.ER PO SCH (10:00)
== END 2017-10-17 07:15 ==
LOC: JD.ED 12:53 → MERGE 18:17 → JD.MS 18:17
PROVIDERS: ADMIT Internal Medicine; ATTEND Internal Medicine
DX: S80.02XA Contusion of left knee, initial encounter (principal); M25.462 Effusion, left knee; E78.5 Hyperlipidemia, unspecified; E11.9 Type 2 diabetes mellitus without complications; N40.0 Benign prostatic hyperplasia without lower urinary tract symptoms; D50.9 Iron deficiency anemia, unspecified; M81.0 Age-related osteoporosis without current pathological fracture; M10.9 Gout, unspecified; F32.9 Major depressive disorder, single episode, unspecified; I69.351 Hemiplegia and hemiparesis following cerebral infarction affecting right dominant side; E83.42 Hypomagnesemia; I48.91 Unspecified atrial fibrillation; I11.0 Hypertensive heart disease with heart failure; I50.9 Heart failure, unspecified; I25.2 Old myocardial infarction; J44.9 Chronic obstructive pulmonary disease, unspecified; G47.30 Sleep apnea, unspecified; K21.9 Gastro-esophageal reflux disease without esophagitis; W10.9XXA Fall (on) (from) unspecified stairs and steps, initial encounter; Z79.01 Long term (current) use of anticoagulants; Z79.899 Other long term (current) drug therapy; Z79.4 Long term (current) use of insulin; Z88.8 Allergy status to other drugs, medicaments and biological substances; Z95.2 Presence of prosthetic heart valve; Z95.5 Presence of coronary angioplasty implant and graft; Z87.891 Personal history of nicotine dependence
CPT/HCPCS: 36415; 73564-26-LT; 73564-LT; 73700-26-LT; 73700-LT; 80048; 80053; 81001; 82306; 82962; 83036; 83735; 84439; 84443; 84550; 84560; 85025; 85610; 86140; 87070; 87086; 87205; 89050; 89060; 90670; 94640; 94664; 94760; 96361; 96365; 96366; 96375; 97110-GO; 97110-GP; 97112-GP; 97162-GP; 97167-GO; 97530-GO; 97530-GP; 99285-25; A9270-GY; G0009; G0378; J0360; J0696; J1815-GY; J7030; J7040; J7050; J7060; J8540